=== PATIENT | male | born 1970 | race Caucasian/White ===

== ENCOUNTER 2017-09-26 12:10 | Inpatient (IN) | payer BC ==
[~2017-09-26] VITALS: Ht 172.7 cm; Wt 100.0 kg
--- NOTE | ~2017-09-26 | DS ---
PATIENT:NOE WASHBURN :68 MEDICAL RECORD: [id number] DISCHARGE SUMMARY ADMISSION DATE: 09/26/17 DISCHARGE DATE: 09/27/17 DATE OF ADMISSION: 09/26/2017 DATE OF DISCHARGE: 09/27/2017 PROBLEM LIST: 1. Acute coronary syndrome. 2. Chidi syndrome. 3. Hypertension. 4. Hyperlipidemia. BRIEF HISTORY AND HOSPITAL COURSE: A 47-year-old gentleman admitted post-WA approximately 10 days ago in [place], underwent intervention that point. Admitted with symptoms historically consistent with both rest with an acute coronary syndrome, found to have residual disease of LAD diagonal which we intervened on as well as treated for Chidi, responded very nicely to both. Discharged to home in good condition. MEDICATIONS: Same as admission except I added Medrol Dosepak. Discharged home in good condition. ACTIVITY: As tolerated. DIET: 1800 calorie ADA diet. To see him back in the office in approximately 1 month. TRANSINT:[id number] Voice Confirmation ID: [id number] DOCUMENT ID: [id number] DANILO CHAKRABORTY MD at 1116 CC: [id number] DICTATION DATE: 09/27/17 0837 DISTRIBUTION ENGINEER: 09/27/17 0948 DIS IN 09/27/17 [id number] [place] [address]
--- NOTE | ~2017-09-26 | HEMODYNAMI ---
PATIENT:NOE WASHBURN MEDICAL RECORD: [id number] : 68 [id number] ADMISSION DATE: 09/26/17 Generatedon:09/26/201713:18 Patient name: NOE WASHBURN Patient #: [id number] SSN: : Date of study: 09/26/2017 Page: Of Hemodynamic Procedure Report Patient Data Patient Demographics Procedure consent was obtained First Name: NOE Gender: Male Last Name: WU : 1970 [facility] Initial: P Age: 47 year(s) Patient #: [id number] Race: Unknown Additional ID: [id number] Contact details Address: [address] [address] State: [place] City: [place] Zip code: [address] Past Medical History Allergies: No known allergies Admission Admission Data Admission Date: 09/26/2017 Admission Time: 12:10 Procedure Procedure Types Cath Procedure Diagnostic Procedure Sedation Charges Moderate Sedation up to 15 minutes PCI Procedure AMI/SVG/SHIPFITTER HELPER PTCA or Stent SVG-BMS/EMILY Initial SVG-BMS/EMILY Additional Procedure Description Procedure Date Procedure Date: 09/26/2017 Procedure Start Time: 12:40 Procedure End Time: 13:17 Procedure Staff Name Function Chandler Vogel MD Performing Physician Natalie Serna RT Monitor Mitesh Gomez RT Scrub Trevor Stewart RN Nurse Procedure Data Cath Procedure Fluoroscopy Diagnostic fluoroscopy Total fluoroscopy Time: 7.8 time: 7.8 min min Diagnostic fluoroscopy Total fluoroscopy dose: dose: 1474 mGy 1474 mGy Contrast Material Contrast Material Type Amount (ml) Isovue 370 137 Entry Location Entry Primary Successful Side Size Upsize Upsize Entry Closure Succes sful Closure Location (Fr) 1 (Fr) 2 (Fr) Remarks Device Remarks Femoral Left 6 Fr Exoseal artery Short Estimated blood loss: 10 ml Diagnostic catheters Device Type Used For End Catheter Placement MULTIPACK JL 4.0 5Fr Procedure catheter MULTIPACK 3DRC 5Fr Procedure catheter MULTIPACK Pigtail 5 Fr Procedure catheter Procedure Complications No complications Procedure Medications Medication Administration Route Dosage 0.9% NaCl I.V. 100 ml/hr Oxygen etCO2 Nasal cannula 2 l/min Heparin Flush Bag added to field 2 bags (1000units/500ml NS) Lidocaine 2% added to field 20 Versed I.V. 2 mg Fentanyl I.V. 100 mcg Versed I.V. 1 mg Fentanyl I.V. 50 mcg Versed I.V. 1 mg Solumedrol I.V. 125 mg Hemodynamics Rest Heart Rate: 89 (bpm) Pressure Samples Time Site Value (mmHg) Purpose Heart Use Rate(bpm) 12:45 LV 109/3,15 Snapshot 95 Gradients Valve Time Site Site Mean SEP/DFP Peak To Heart Use 1 2 (mmHg) (sec/min) Peak Rate (mmHg) (bpm) Aortic 12:45 LV AO 90 Snapshots Pre Cath Intra NCS Post Cath Vital Signs Time Heart Resp SPO2 etCO2 NIBP (mmHg) Rhythm Pain Sedation Rate (ipm) (%) (mmHg) Status Level (bpm) 12:34:47 91 24 98 0 125/76(90) NSR 0 (11) 10(A) , No pain 12:39:26 91 14 98 0 109/64(90) NSR 0 (11) 10(A) , No pain 12:44:06 87 14 95 0 116/65(80) NSR 0 (11) 10(A) , No pain 12:48:49 91 14 95 0 120/69(94) NSR 0 (11) 10(A) , No pain 12:53:27 90 15 96 0 106/61(78) NSR 0 (11) 9(A) , No pain 12:58:06 89 15 96 0 118/78(94) NSR 0 (11) 9(A) , No pain 13:02:45 90 19 97 0 130/86(99) NSR 0 (11) 9(A) , No pain 13:07:25 89 20 98 0 140/97(113) NSR 0 (11) 10(A) , No pain 13:12:08 87 16 98 0 132/90(103) NSR 0 (11) 10(A) , No pain 13:16:50 87 18 96 0 136/90(105) NSR 0 (11) 10(A) , No pain Medications Time Medication Route Dose Verified Delivered Reason Notes Eff ectiveness by by 12:34:56 0.9% NaCl I.V. 100 Trevor Trevor Per ml/hr Pat Stewart physician RN RN 12:35:06 Oxygen etCO2 2 Trevor Trevor Per Nasal l/min Pat Stewart physician cannula RN RN 12:35:18 Heparin Flush added 2 Trevor Trevor used for Bag to bags Lorigan Lorigan procedure (1000units/500ml field RN RN NS) 12:35:29 Lidocaine 2% added 20ml Trevor Trevor for local to vial Lorigan Lorigan anesthetic field RN RN 12:37:05 Versed I.V. 2 mg Trevor Trevor for Lorigan Lorigan sedation RN RN 12:37:14 Fentanyl I.V. 100 Trevor Trevor for mcg Lorigan Lorigan sedation RN RN 12:38:54 Versed I.V. 1 mg Trevor Trevor for Lorigan Lorigan sedation RN RN 12:39:56 Fentanyl I.V. 50 Trevor Trevor for mcg Lorigan Lorigan sedation RN RN 13:08:15 Versed I.V. 1 mg Trevor Trevor for Lorigan Lorigan sedation RN RN 13:08:33 Solumedrol I.V. 125 Trevor Trevor Per mg Catiaigan Lorigan physician RN client coordinator Log Time Note 12:15:30 Signed procedure consent form obtained from patient. 12:15:32 Time tracking: Regular hours (M-F 7:00 - 5:00) 12:15:44 Plan of Care:Hemodynamics will remain stable., Cardiac rhythm will remain stable., Comfort level will be maintained., Respiratory function will remain adequate., Patient/ family verbilizes understanding of procedure., Procedure tolerated without complication., Recovers from procedure without complications.. 12:17:16 Trevor Stewart RN sent for patient. Start room use. 12:26:38 Patient received from ED to CCL 1 Alert and oriented. Tansferred to table in Supine position. 12:26:39 Warm blankets applied, and gilma hugger turned on for patient comfort. 12:26:40 Correct patient and procedure confirmed by team. 12:26:40 ECG and BP/O2 sat monitors applied to patient. 12:33:53 Vital chart was started 12:33:54 Baseline sample Acquired. 12:34:05 Rhythm: sinus rhythm , w/ ST elevation 12:34:06 Full Disclosure recording started 12:34:10 H&P Date Dictated: 09/26/2017 ER History on chart.. 12:34:11 Pre-procedure instructions explained to patient. 12:34:12 Pre-op teaching completed and patient verbalized understanding. 12:34:14 Patient NPO since Midnight. 12:34:20 Patient allergic to No known allergies 12:34:23 Is the patient allergic to Iodine/contrast media? No. 12:34:24 Is patient on blood thinner?Yes 12:34:26 ACC The patient was administered the following blood thiners within the last 24 hours: ACCPlavix 12:34:27 Patient diabetic? Yes. 12:34:28 If diabetic: On Metformin? Yes 12:34:29 If on Metformin: Last Dose? 09/26/2017 12:34:32 Previous problem with sedation/anesthesia? No ? 12:34:33 Snore? Yes 12:34:34 Sleep apnea? Yes 12:34:35 Deviated septum? No 12:34:35 Opens mouth fully? Yes 12:34:36 Sticks out tongue? Yes 12:34:38 Airway obstruction? No ? 12:34:39 Dentures? No ? 12:34:56 0.9% NaCl 100 ml/hr I.V. was administered by Trevor Stewart RN; Per physician; 12:35:06 Oxygen 2 l/min etCO2 Nasal cannula was administered by Trevor Stewart RN; Per physician; 12:35:18 Heparin Flush Bag (1000units/500ml NS) 2 bags added to field was administered by Trevor Stewart RN; used for procedure; 12:35:25 Pre procedure: left dorsailis pedis pulse 2+ Normal; easily identifiable; not easily obliterated 12:35:29 Lidocaine 2% 20ml vial added to field was administered by Trevor Stewart RN; for local anesthetic; 12:35:32 IV patent on arrival in right hand with 0.9% NaCl at [facility]. 12:35:39 Left groin area was prepped with chlora-prep and draped in sterile fashion 12:35:41 Alarms reviewed by R. N. 12:35:41 Sharps counted by scrub and verified by R.N. 12:35:48 --------ALL STOP TIME OUT------ 12:35:48 Final Timeout: patient, procedure, and site verified with staff and physician. All members of the team are in agreement. 12:35:51 Left groin site verified by team. 12:35:57 Physical assessment completed. ASA score P 2 - A patient with mild systemic disease as per Chandler Vogel MD. 12:36:00 Sedation plan: IV Moderate Sedation Medication:Versed, Fentanyl 12:36:05 Use device set Femoral Dx 12:36:06 ACIST Syringe (26727) opened to sterile field. 12:36:07 Bag Decanter (2002S) opened to sterile field. 12:36:11 ACIST Hand Control (50367) opened to sterile field. 12:36:12 ACIST Manifold (91508) opened to sterile field. 12:36:13 Tegaderm 4 x 4 (1626W) opened to sterile field. 12:36:14 Medline Cath Pack ([id number]) opened to sterile field. 12:36:14 DIAGNOSTIC WIRE .035 260cm J wire (658579) opened to sterile field. 12:36:16 DIAGNOSTIC Multipack 5Fr catheter set (FO5096) opened to sterile field. 12:36:41 SHEATH 6FR Broussard (WPX818) opened to sterile field. 12:36:41 INFLATOR Merit BasixCompak (GV8085) opened to sterile field. 12:36:42 WHISPER 300cm guide wire ([id number]) opened to sterile field. 12:37:05 Versed 2 mg I.V. was administered by Trevor Stewart RN; for sedation; 12:37:14 Fentanyl 100 mcg I.V. was administered by Trevor Stewart RN; for sedation; 12:38:54 Versed 1 mg I.V. was administered by Trevor Stewart RN; for sedation; 12:39:44 Zero performed for pressure channel P1 12:39:56 Fentanyl 50 mcg I.V. was administered by Trevor Stewart RN; for sedation; 12:40:03 Procedure started. 12:40:07 Local anesthetic to left femerol artery with Lidocaine 2% by Chandler Vogel MD.INITIAL ACCESS ONLY 12:40:15 A 6 Fr Short sheath was inserted into the Left Femoral artery 12:40:34 A MULTIPACK JL 4.0 5Fr catheter was advanced over the wire and used for Procedure. 12:42:19 LCA angiography performed. 12:43:04 Catheter removed. 12:43:11 A MULTIPACK 3DRC 5Fr catheter was advanced over the wire and used for Procedure. 12:43:45 RCA angiography performed. 12:43:47 Catheter removed. 12:44:10 A MULTIPACK Pigtail 5 Fr catheter was advanced over the wire and used for Procedure. 12:44:44 LV gram done using SOUZA 12:44:46 Injector settings: Ml/sec: 10, Volume: 20, 12:45:22 LV hemodynamics recorded. 12:45:28 EF : 55 % 12:45:38 Catheter removed. 12:46:02 GUIDE 6FR EBU 3.5 catheter ([id number]) opened to sterile field. 12:46:22 6 Fr EBU 3.5 guide catheter was inserted over the wire 12:49:14 WHISPER 300 wire advanced. 12:52:16 Wire advanced across lesion. 12:53:38 Place stent Inflation Number: 1 A ALISIA OTW 3.5 x 30 stent ([id number]) was prepped and advanced across the Prox LAD. The stent was deployed at 14 LOUIS for 0:15 (min:sec). 12:54:11 Stent catheter was removed intact over wire. 12:57:13 Place stent Inflation Number: 1 A ALISIA OTW 3.5 x 12 stent ([id number]) was prepped and advanced across the Mid LAD. The stent was deployed at 14 LOUIS for 0:15 (min:sec). 12:58:11 Inflation number: 2 The stent balloon was then re-inflated across the Mid LAD to 4 LOUIS for 0:10 (min:sec). 12:58:48 Inflation number: 3 The stent balloon was then re-inflated across the Mid LAD to 4 LOUIS for 0:10 (min:sec). 13:00:03 Stent catheter was removed intact over wire. 13:00:09 Wire redirected to DIAG. 13:04:27 Place stent Inflation Number: 1 A ALISIA OTW 3.0 x 30 stent ([id number]) was prepped and advanced across the 1st Diag. The stent was deployed at 12 LOUIS for 0:20 (min:sec). 13:05:14 Stent catheter was removed intact over wire. 13:05:14 Wire removed. 13:05:30 Guide catheter removed. 13:05:49 EXOSEAL 6Fr (EX600) opened to sterile field. 13:06:00 Sheath removed intact; hemostasis achieved with Exoseal to the Left Femoral artery. 13:06:48 Procedure ended.(Physican Out) 13:07:09 Fluoroscopy time 07.80 minutes. 13:07:15 Fluoroscopy dose: 1474 mGy 13:07:15 Flurop Dose total: 1474 13:07:19 Contrast amount:Isovue 370 137ml. 13:07:21 Sharps counted by scrub and verified by R.N. 13:07:24 Post-op/insertion site Left Femoral artery dressed using a 4 x 4 and Tegaderm. 13:07:30 Post left femerol artery:stable, soft, clean and dry 13:07:35 Post-procedure physical assessment completed. ASA score P 2 - A patient with mild systemic disease as per Chanlder Vogel MD. 13:08:15 Versed 1 mg I.V. was administered by Trevor Stewart RN; for sedation; 13:08:33 Solumedrol 125 mg I.V. was administered by Trevor Stewart RN; Per physician; 13:08:46 Post procedure rhythm: sinus rhythm 13:08:48 Estimated blood loss: 10 ml 13:11:22 Post procedure instruction explained to patient.Patient verbalizes understanding. 13:11:22 Patient needs reinforcement of post procedure teaching. 13:11:37 Procedure type changed to Cath procedure, Diagnostic procedure, Sedation Charges, Moderate Sedation up to 15 minutes, PCI procedure, AMI/SVG/SHIPFITTER HELPER PTCA or Stent, SVG-BMS/EMILY Initial, SVG-BMS/EMILY Additional 13:12:02 Procedure and supply charges have been captured, reviewed, submitted and are correct. 13:12:05 Procedure Complication : No complications 13:17:22 Vital chart was stopped 13:17:23 See physician's report for complete and final results. 13:17:27 Report given to PCU. 13:17:30 Patient transfered to PCU with Bed. 13:17:31 Procedure ended. 13:17:31 Full Disclosure recording stopped 13:17:37 End room use (Document Last) Intervention Summary Intervention Notes Time ActionType Lesion and Equipment Action# Pressure Duration Attributes Used 12:53:38 Place stent Prox LAD ALISIA OTW 3.5 1 14 00:15 x 30 stent ([id number]) 12:57:13 Place stent Mid LAD ALISIA OTW 3.5 1 14 00:15 x 12 stent ([id number]) 12:58:11 Reinflate Mid LAD ALISIA OTW 3.5 2 4 00:10 stent x 12 stent balloon ([id number]) 12:58:48 Reinflate Mid LAD ALISIA OTW 3.5 3 4 00:10 stent x 12 stent balloon ([id number]) 13:04:27 Place stent 1st Diag ALISIA OTW 3.0 1 12 00:20 x 30 stent ([id number]) Device Usage Item Name Manufacture Quantity Catalog Hospital Part Current Mini mal Lot# / Number Charge Number Stock Stock Serial# Code ACIST Syringe Acist 1 89977 124064 473185 118859 20 (23989) Medical Systems Inc Bag Decanter Microtek 1 2001S 059794 97429 262912 5 (2001S) Medical Inc. ACIST Hand Acist 1 75208 537657 930087 416769 5 Control Medical (09035) Systems Inc ACIST Acist 1 49146 734219 465944 101696 5 Manifold Medical (63304) Systems Inc Tegaderm 4 x 3M 1 1626W 852577 587991 701459 5 4 (1626W) Medline Cath Cardinal 1 [id number] 678028 26231 704705 5 [facility] ([id number]) DIAGNOSTIC St Dexter 1 407321 404776 969873 353847 30 WIRE .035 260cm J wire (452977) DIAGNOSTIC Cardinal 1 FX6831 777138 08242 423167 30 Multipack 5Fr Health catheter set (OZ7048) SHEATH 6FR Terumo 1 BMU243 012679 819366 531208 40 Broussard (MRB473) INFLATOR Merit 1 CV7546 656293 481165 788207 15 [facility] Medical BasixCompak (AH1213) WHISPER 300cm Hawley 1 [id number] 409895 710832 427045 5 guide wire Vascular ([id number]) MULTIPACK JL Cardinal 1 846037 5 4.0 5Fr Health catheter MULTIPACK Cardinal 1 314978 5 3DRC 5Fr Health catheter MULTIPACK Cardinal 1 991588 5 Pigtail 5 Fr Health catheter GUIDE 6FR EBU Medtronic 1 [id number] 697246 44277 798247 3 3.5 catheter (ND3VZB82) ALISIA OTW 3.5 Medtronic 1 [id number] 759280 2325352 099509 5 [id number] x 30 stent ([id number]) ALISIA OTW 3.5 Medtronic 1 [id number] 703528 6993989 922782 5 [id number] x 12 stent ([id number]) ALISIA OTW 3.0 Medtronic 1 [id number] 668279 4153214 956957 5 [id number] x 30 stent ([id number]) EXOSEAL 6Fr Cardinal 1 EX600 650007 128903 951461 10 (EX600) Health Signature Audit [place] Stage Time Signature Unsigned Intra-Procedure 09/26/2017 Natalie Serna 1:18:00 PM RT(R) Signatures Monitor : Natalie Serna Signature : RT Date : Time : [address] [place] [address]
--- NOTE | ~2017-09-26 | MORECARE ---
CASE MANAGEMENT DISCHARGE SUMMARY PATIENT: NOE WASHBURN UNIT: [id number] ADM DATE: 09/26/17 AGE: 47 : [birth year] SEX: M ROOM/BED: D.2114 AUTHOR: CASE, CLOTHING AND TEXTILES TEACHER PHYSICIAN: REFERRING PHYSICIAN: DANILO CHAKRABORTY MD DATE OF SERVICE: 09/26/17 Discharge Plan Patient Name: NOE WASHBURN Facility: [facility]:[place] : 1970 Planned Disposition: Home Anticipated Discharge Date: 09/27/17 Discharge Date: Expected LOS: 1 Initial Reviewer: [email or web address] Initial Review Date: 09/27/2017 Generated: 09/27/17 12:24 pm Comments DCP- Discharge Planning Updated by [email or web address]: Allan Real on 09/27/17 10:[address] Patient Name: NOE WASHBURN Admission Status: ER Accout number: [id number] Admission Date: 09-26-2017 : 1970 Admission Diagnosis:CHEST PAIN, UNSPECIFIED Attending: DANILO CHAKRABORTY Current LOS: 1 Anticipated DC Date: 09-27-2017 Planned Disposition: Home Primary Insurance: Xyo [facility] Discharge Planning Comments: CM ATTEMPTED TO MEET WITH PT IN ROOM TO ASSESS FOR DISCHARGE NEEDS AT APPROXIMATELY 1010 HOURS. PT HAD ALREADY DISCHARGED HOME. Spark Plug Assembler: Allan Real Patient Name: NOE WASHBURN Page [phone] All edits/amendments must be made on the electronic document DICTATION DATE: 09/27/17 1124 DRAW OPERATOR: 09/27/17 1124 RPT#: [id number] DC DATE: STATUS: ADM IN [facility] [address] [place] [address] END OF REPORT
--- NOTE | ~2017-09-26 | OP ---
PATIENT NAME: NOE WASHBURN MEDICAL RECORD: [id number] :68 LOCATION:D.M2 D.2114 ADMISSION DATE:09/26/17 SURGEON: DANILO CHAKRABORTY MD DATE OF OPERATION: 09/26/2017 PROCEDURE: Left heart catheterization, selective coronary angiography, right radial approach. CATHETERS: A 5-Nigerien sheath, 5/4 left and right César. The procedure was well tolerated. We proceeded immediately with mid and PDA stenting to the LAD and diagonal after procedure was finished. FINDINGS: Left ventriculography in 30-degree SOUZA view: This shows normal wall motion and normal systolic function. No significant mitral regurgitation. No evidence of VSD. CORONARY ANATOMY: LEFT MAIN: Left main is free of disease. LAD: LAD has diffuse 80% stenosis, typical of diabetic disease, after takeoff of first diagonal. First diagonal itself is a large vessel diffuse 80% stenosis. CIRCUMFLEX: Codominant system. Free of disease. RIGHT CORONARY ARTERY: Codominant system. Widely patent stent. PLAN: Intervention of LAD and diagonal momentarily. DESCRIPTION OF PROCEDURE: A 5-Nigerien sheath was changed for 6-Nigerien sheath. XB LAD guiding catheter provided excellent guide catheter support followed by 300 cm Whisper wire placed across the diffusely diseased LAD and distal portion of the vessel. Stents deployed in the following fashion. A 3.5 x 30 mm and 3.5 x 12 mm Elwood drug-eluting stents up to 14 atmospheres for 45 seconds. Next, the diagonal was addressed with a 28 mm x 3.0 Elwood drug-eluting stent up to 14 atmospheres. Final angiography shows excellent resolution of diffuse stenosis, typical of diabetic in the LAD and diagonal. ARNALDO flow was 3 throughout the procedure. Heparin was used in the case. Sheath was closed with ExoSeal device. TRANSINT:[id number] Voice Confirmation ID: [id number] DOCUMENT ID: [id number] DANILO CHAKRABORTY MD at 1116 CC: [id number] DICTATION DATE: 09/26/17 1319 SYSTEMS DEVELOPMENT MANAGER: 09/26/17 1354 DIS IN 09/27/17 [address] [place] [address]
--- NOTE | ~2017-09-26 | HP ---
PATIENT: NOE WASHBURN MEDICAL RECORD: [id number] ACCOUNT: [id number] LOCATION:[address] : [birth year] ADMISSION DATE: 09/26/17 HISTORY AND PHYSICAL EXAMINATION HISTORY OF PRESENT ILLNESS: A 47-year-old gentleman status post intervention 3 weeks ago in [place] after acute inferior myocardial infarction, began having rest symptomology, presented to Dr. Bland's office, was sent here via ambulance, being brought to the label maker on an urgent basis. Symptomology began last couple of days, some pleuritic component. He is being brought to the lab on an urgent basis. PAST MEDICAL HISTORY: Includes: 1. History of diabetes. 2. Hypertension. 3. Hyperlipidemia. 4. Coronary artery disease as described above. 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 Does smoke less than half pack a day. ALLERGIES: None known. REVIEW OF SYSTEMS: The patient reports easy bruising but reports no swollen glands. The patient reports no fever, no night sweats, no significant weight gain, no significant weight loss. No significant exercise tolerance. The patient reports no dry eyes, no irritation, no vision change. Patient reports no difficulty hearing and no ear pain. Patient reports no frequent nose bleeds or nose and sinus problems. Patient reports on arm pain on exertion. No shortness of breath while lying down. No history of heart murmur. Patient reports no cough, no wheezing or coughing up blood. Patient reports no abdominal pain, no vomiting. Normal appetite. No diarrhea and not vomiting blood. No nausea and no constipation. Patient reports no incontinence. No difficulty urinating. No hematuria. No increased frequency. Patient reports no muscle aches. No weakness, no arthralgias, no back pain. No swelling of the extremities. Patient reports no abnormal mole, no jaundice, no rashes. Reports no loss of consciousness. No weakness and no numbness. No seizures, dizziness, or headaches. The patient reports no depression, no sleep disturbance, feeling safe in a relationship and no alcohol abuse. Patient reports on fatigue. Reports no runny nose or sinus pressure. No itching, no hives, and no frequent sneezing. PHYSICAL EXAMINATION: GENERAL: Unkempt-appearing gentleman in mild distress. VITAL SIGNS: Pulse 78 and regular, blood pressure 103/74. HEENT: Normocephalic and atraumatic. NECK: No JVD or bruit. HEART: Regular. A soft 1/6 systolic ejection murmur, cannot exclude a single component friction rub. LUNGS: Good air excursion. ABDOMEN: Soft and nontender. EXTREMITIES: Pulses well preserved, 2+ with no edema. ECG revealed some minor non-specific ST changes anteriorly, old inferior myocardial infarction. HISTORY AND PHYSICAL [id number] NOE WASHBURN PLAN: Angiography, intervention based on above. TRANSINT:[id number] Voice Confirmation ID: [id number] DOCUMENT ID: [id number] DANILO CHAKRABORTY MD at 1116 CC: [id number] DICTATION DATE: 09/26/17 1317 JOCKEY VALET: 09/26/17 1328 DIS IN 09/27/[address] [address]
[2017-09-26] MEDS ORDERED: PLAVIX75 MG PO (12:27)
[2017-09-26] MEDS ORDERED: BAYER CHEWABLE81 MG PO (12:27)
[2017-09-26 12:28] LABS: BASOPHILS 0.4 % (0-2); HEMATOCRIT 43.8 % (42.0-54.0); HEMOGLOBIN 15.4 g/dL (13.5-17.5); IMMATURE GRANULOCYTES 0.3 % (0-5); MCH 30.6 pg (26.0-34.0); MCHC 35.2 g/dL (31.0-37.0); MCV 87.1 fL (80.0-100.0); MEAN PLATELET VOLUME 10.9 fL (7.4-10.4); MONOCYTES 9.5 % (2-11); NEUTROPHILS 54.8 % (40-80); PLATELET COUNT 230 10x3/uL (130-400); RBC 5.03 10x6/uL (4.20-6.10); RDW 12.4 % (11.5-14.5); WBC 11.9 10x3/uL (4.8-10.8)
[2017-09-26] MEDS ORDERED: METOPROLOL TART50 MG PO (12:28)
[2017-09-26] MEDS ORDERED: ZESTRIL20 MG PO (12:28)
[2017-09-26] MEDS ORDERED: ZOCOR40 MG PO (12:28)
[2017-09-26] MEDS ORDERED: GLUCOPHAGE500 MG PO (12:29)
[2017-09-26 12:52] LABS: ALKALINE PHOSPHATASE 137 U/L (46-116); ALT (SGPT) 26 U/L (10-68); APTT 24.5 SECONDS (22.8-39.4); BILIRUBIN - TOTAL 0.31 mg/dL (0.2-1.3); CALC OSMOLALITY 283 mosm/kg (275-300); CALCIUM 8.7 mg/dL (8.5-10.1); CARBON DIOXIDE 26.3 mmol/L (21.0-32.0); CHLORIDE - SERUM 103 mmol/L (98-107); CREATININE - SERUM 0.9 mg/dL (0.6-1.3); GLUCOSE 316 mg/dL (74-106); INR 0.94 (0.85-1.17); POTASSIUM - SERUM 4.1 mmol/L (3.5-5.1); PROTEIN - SERUM 6.9 g/dL (6.4-8.2); PROTIME 12.2 SECONDS (11.6-15.0); SODIUM 136 mmol/L (136-145); UREA NITROGEN 13 mg/dL (7-18); eGFR NON AFRICAN AMERICAN > 90 mL/min (90-120)
[2017-09-26 13:02] LABS: CKMB 0.4 U/L (0.0-3.6); CREATINE KINASE 51 UL (21-232); TROPONIN-I < 0.017 ng/mL (0.000-0.060)
[2017-09-26 13:45] VITALS: BP 124/82; Ht 172.7 cm; Wt 100.0 kg
[2017-09-26 14:03] VITALS: BP 117/72
[2017-09-26 20:00] VITALS: BP 163/90
[2017-09-26] MEDS ORDERED: ATIVAN1 MG PO (20:27)
[2017-09-27] VITALS: BP 140/85
[2017-09-27 04:00] VITALS: BP 134/82
[2017-09-27 07:50] VITALS: BP 139/88
[2017-09-27] MEDS ORDERED: MEDROL DOSE PACK4 MG PO (08:29)
[2017-09-27 11:12] VITALS: BP 152/93
== END 2017-09-27 10:00 | disposition home or self-care (01) | DRG 247 ==
LOC: D.CATH 12:10 → D.ER 12:10 → EDSTATUS 12:30 → D.M2 13:17 → D.CATH 13:18 → D.M2 09-27 10:00
PROVIDERS: Internal Medicine Interventional Cardiology
PROC: B2111ZZ Fluoroscopy of Multiple Coronary Arteries using Low Osmolar Contrast (ICD-10-PCS; 2017-09-26)
PROC: B2151ZZ Fluoroscopy of Left Heart using Low Osmolar Contrast (ICD-10-PCS; 2017-09-26)
PROC: 027136Z Dilation of Coronary Artery, Two Arteries with Three Drug-eluting Intraluminal Devices, Percutaneous Approach (ICD-10-PCS; principal; 2017-09-26 12:30)
PROC: 4A023N7 Measurement of Cardiac Sampling and Pressure, Left Heart, Percutaneous Approach (ICD-10-PCS; 2017-09-26 12:30)
DX: I25.118 Atherosclerotic heart disease of native coronary artery with other forms of angina pectoris (principal); I24.1 Dressler's syndrome; I25.2 Old myocardial infarction; E11.9 Type 2 diabetes mellitus without complications; I10 Essential (primary) hypertension; E78.5 Hyperlipidemia, unspecified; Z72.0 Tobacco use

== ENCOUNTER 2017-10-19 12:05 | Emergency (ER) | payer BC ==
[~2017-10-19] VITALS: Ht 172.7 cm; Wt 101.8 kg
[~2017-10-19 12:05] MED LIST: ATIVAN1 MG PO; BAYER CHEWABLE81 MG PO; GLUCOPHAGE500 MG PO; MEDROL DOSE PACK4 MG PO; METOPROLOL TART50 MG PO; PLAVIX75 MG PO; ZESTRIL20 MG PO; ZOCOR40 MG PO
[2017-10-19 12:13] VITALS: Ht 172.7 cm; Wt 101.8 kg
[2017-10-19 12:48] LABS: BASOPHILS 0.4 % (0-2); EOSINOPHILS 4.7 % (0-7); HEMATOCRIT 45.9 % (42.0-54.0); HEMOGLOBIN 16.3 g/dL (13.5-17.5); IMMATURE GRANULOCYTES 0.2 % (0-5); LYMPHOCYTES 26.5 % (15-50); MCH 30.6 pg (26.0-34.0); MCHC 35.5 g/dL (31.0-37.0); MCV 86.1 fL (80.0-100.0); MEAN PLATELET VOLUME 10.6 fL (7.4-10.4); NEUTROPHILS 61.2 % (40-80); PLATELET COUNT 217 10x3/uL (130-400); RBC 5.33 10x6/uL (4.20-6.10); RDW 12.4 % (11.5-14.5)
[2017-10-19 13:02] LABS: ALBUMIN 3.3 g/dL (3.4-5.0); ALKALINE PHOSPHATASE 123 U/L (46-116); ALT (SGPT) 26 U/L (10-68); BILIRUBIN - TOTAL 0.29 mg/dL (0.2-1.3); CALC OSMOLALITY 279 mosm/kg (275-300); CALCIUM 8.9 mg/dL (8.5-10.1); CARBON DIOXIDE 27.7 mmol/L (21.0-32.0); CHLORIDE - SERUM 102 mmol/L (98-107); CREATININE - SERUM 0.9 mg/dL (0.6-1.3); POTASSIUM - SERUM 3.7 mmol/L (3.5-5.1); PROTEIN - SERUM 7.3 g/dL (6.4-8.2); SODIUM 137 mmol/L (136-145); UREA NITROGEN 8 mg/dL (7-18); eGFR NON AFRICAN AMERICAN > 90 mL/min (90-120)
[2017-10-19 13:05] LABS: GLUCOSE 237 mg/dL (74-106)
[2017-10-19 13:13] LABS: APPEARANCE CLEAR (CLEAR)
[2017-10-19 13:14] LABS: BILIRUBIN NEGATIVE (NEGATIVE); COLOR STRAW (YELLOW); GLUCOSE 1000 mg/dL (NEGATIVE); KETONE NEGATIVE (NEGATIVE); NITRITE NEGATIVE (NEGATIVE); PROTEIN NEGATIVE (NEGATIVE); SPECIFIC GRAVITY 1.015 (1.005-1.020); UROBILINOGEN NORMAL (NORMAL)
[2017-10-19 13:22] LABS: AMYLASE - SERUM 53 U/L (25-115); LIPASE 171 U/L (73-393)
[2017-10-19] MEDS ORDERED: NORCO 7.5/325 T1 TA1 PO (16:40)
[2017-10-19 16:59] VITALS: BP 144/84
== END 2017-10-19 17:00 | disposition home or self-care (01) ==
LOC: D.ER 12:05
PROVIDERS: Emergency Medicine
DX: R10.11 Right upper quadrant pain (principal); E11.9 Type 2 diabetes mellitus without complications; I10 Essential (primary) hypertension

== ENCOUNTER 2017-11-15 16:10 | Outpatient (CLI) | payer BC ==
[~2017-11-15] VITALS: Ht 172.7 cm; Wt 100.1 kg
--- NOTE | ~2017-11-15 | HP ---
PATIENT: NOE WASHBURN MEDICAL RECORD: [id number] ACCOUNT: [id number] LOCATION:[address] : [birth year] ADMISSION DATE: 11/15/17 PCP: MARK HICKEY DO HISTORY AND PHYSICAL EXAMINATION DIAGNOSES: 1. Unstable angina. 2. Coronary artery disease. 3. Previous percutaneous transluminal coronary angioplasty stent. 4. Hypertension. 5. Hyperlipidemia. HISTORY OF PRESENT ILLNESS: Mr. Washburn presents with chest pain, it has been going on all day. He [place] myocardial [place]. Followed up with Dr. Omalley. Approximately 2-3 weeks ago, underwent successful PTCA stent of the LAD and diagonal. There was still concomitant disease in the LAD as well as the circumflex. 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 He drove here, his severe chest pain is gone now. He is still having some chest pressure. He has nonspecific ST-T abnormalities on his EKG. OVERALL IMPRESSION: Unstable anginal symptomatology. We will continue his aspirin and Plavix, give him a heparin drip and proceed with coronary angiography in the a.m. Further care depends upon the findings of the angiography. TRANSINT:[id number] Voice Confirmation ID: [id number] DOCUMENT ID: [id number] ALPHONSE BAILEY MD at 0934 CC: [id number] DICTATION DATE: 11/15/17 1655 TIGHTENING MACHINE OPERATOR: 11/15/17 1737 ADM IN [id number] [place] [address]
--- NOTE | ~2017-11-15 | OP ---
PATIENT NAME: NOE WASHBURN MEDICAL RECORD: [id number] :68 LOCATION:D.CAT ADMISSION DATE: SURGEON: ALPHONSE BAILEY MD DATE OF OPERATION: 11/16/2017 PROCEDURE: Four-vessel carotid and vertebral angiography. INDICATIONS: Syncope, carotid vascular disease. PROCEDURE IN DETAIL: After informed consent was obtained and after detailed explanation of risks, benefits as well as alternative therapies, the patient elected to proceed with angiogram. The right femoral area had a preexisting sheath from cardiac intervention. All catheters exchanged through this sheath. FINDINGS: There was subselection of each subclavian as well as the left carotid. Right side: The common internal and external carotids have mild plaquing none greater than 20%. No flow-limiting stenosis. Vertebral artery has no significant disease. Left system: The common internal and external carotids have mild plaquing none greater than 20%. No flow-limiting stenosis. Vertebral artery has no significant disease. OVERALL IMPRESSION: Minimal carotid vascular disease is present. Symptomatology is not secondary to carotid vascular insufficiency. TRANSINT:[id number] Voice Confirmation ID: [id number] DOCUMENT ID: [id number] ALPHONSE BAILEY MD at 1823 CC: [id number] DICTATION DATE: 11/16/17 0938 CERTIFIED DIALYSIS TECHNICIAN: 11/16/17 1042 DEP CLI 11/16/17 [id number] [place] [address]
--- NOTE | ~2017-11-15 | DS ---
PATIENT:NOE JIMENEZ :68 MEDICAL RECORD: [id number] DISCHARGE SUMMARY ADMISSION DATE: 11/15/17 DISCHARGE DATE: 11/16/17 DATE OF SERVICE: 11/16/2017 DIAGNOSES: 1. Percutaneous transluminal coronary angioplasty stent left anterior descending this admission. 2. Unstable angina. 3. Hypertension. 4. Hyperlipidemia. 5. Ischemic cardiomyopathy. HOSPITAL COURSE: Mr. Jimenez presents with anginal symptomatology, found to have significant disease of the ostial LAD, underwent successful PTCA stent of the ostium of the LAD, was discharged home with no changes to his medications as he is already on aspirin and Plavix. He will follow up with [facility] in 1 month. TRANSINT:[id number] Voice Confirmation ID: [id number] DOCUMENT ID: [id number] ALPHONSE BAILEY MD at 1823 CC: [id number] DICTATION DATE: 11/16/17 0939 SENIOR MARKETING SPECIALIST: 11/16/17 1008 DEP CLI 11/16/17 [id number] [place] [address]
--- NOTE | ~2017-11-15 | OP ---
PATIENT NAME: NOE WASHBURN MEDICAL RECORD: [id number] :68 LOCATION:D.CAT ADMISSION DATE: SURGEON: ALPHONSE BAILEY MD DATE OF OPERATION: 11/16/2017 PROCEDURES: 1. PTCA and stent of LAD. 2. Intravascular ultrasound. 3. Left heart catheterization. 4. Selective coronary angiography. 5. Left ventriculogram. INDICATION: Angina and coronary artery disease. PROCEDURE IN DETAIL: After informed consent was obtained and after a detailed explanation of risks, benefits as well as alternative therapies, the patient elected to proceed with angiogram and angioplasty. The right femoral area was prepped and draped in normal sterile fashion. The right femoral artery was cannulated via modified Seldinger technique with placement of 6-Libyan sheath. All catheters exchanged through this sheath. FINDINGS: The left ventriculogram was performed in standard 30-degree SOUZA view, reveals global hypokinesis throughout all segments. Overall ejection fraction 40%. SELECTIVE CORONARY ANGIOGRAPHY: 1. Left main is with no significant angiographic disease. 2. Left anterior descending has greater than 75% stenosis at the ostium confirmed by intravascular ultrasound. There are previously placed stents in the LAD and diagonal. These are widely patent. 3. The left circumflex has moderate irregularities. 4. The right coronary has previously placed stents. These are widely patent with no significant restenosis. No disease elsewise of the RCA or its branches. PTCA AND STENT OF THE LAD OSTIUM: The stent used is a 4.0 x 15 mm [place]. Result was 0% residual stenosis. OVERALL IMPRESSION: Successful PTCA and stent of the LAD going from 75% initial stenosis to 0% residual. TRANSINT:[id number] Voice Confirmation ID: [id number] DOCUMENT ID: [id number] ALPHONSE BAILEY MD at 1823 CC: [id number] DICTATION DATE: 11/16/17 0938 KNITTER HAND: 11/16/17 1038 [facility] CLI 11/16/17 [address] [place] [address]
--- NOTE | ~2017-11-15 | HEMODYNAMI ---
PATIENT:NOE WASHBURN MEDICAL RECORD: [id number] : 68 LOCATION:[facility] D.2114 ADMISSION DATE: 11/15/17 Generatedon:11/16/20179:42 Patient name: NOE WASHBURN Patient #: [id number] SSN: : Date of study: 11/16/2017 Page: Of Hemodynamic Procedure Report Patient Data Patient Demographics Procedure consent was obtained First Name: NOE Gender: Male Last Name: WU : 1970 Middle Initial: P Age: 47 year(s) Patient #: [id number] Race: Unknown Additional ID: [id number] Contact details Address: [address] [address] State: [place] City: [place] Zip code: [address] Past Medical History Allergies: No known allergies Admission Admission Data Admission Date: 11/15/2017 Admission Time: 18:04 Admit Source: Emergency department Room #: D.2114 Procedure Procedure Types Cath Procedure Diagnostic Procedure LHC LHC w/Coronaries FFR/IVUS Intra-Coronary IVUS Initial Sedation Charges Moderate Sedation up to 15 minutes PCI Procedure Coronary Stent Coronary Stent Initial Procedure Description Procedure Date Procedure Date: 11/16/2017 Procedure Start Time: 9:18 Procedure End Time: 9:40 Procedure Staff Name Function Adonis López MD Performing Physician Mitesh Gomez RT Monitor Anita Alvarez RT Scrub Deepika Adams RN Nurse Procedure Data Cath Procedure Fluoroscopy Diagnostic fluoroscopy Total fluoroscopy Time: 4.6 time: 4.6 min min Diagnostic fluoroscopy Total fluoroscopy dose: 967 dose: 967 mGy mGy Contrast Material Contrast Material Type Amount (ml) Isovue 300 108 Entry Location Entry Primary Successful Side Size Upsize Upsize Entry Closure Succes sful Closure Location (Fr) 1 (Fr) 2 (Fr) Remarks Device Remarks Femoral Right 6 Fr Exoseal artery Short Estimated blood loss: 10 ml Diagnostic catheters Device Type Used For End Catheter Placement MULTIPACK Pigtail 5 Fr Procedure catheter MULTIPACK JL 4.0 5Fr Procedure catheter MULTIPACK 3DRC 5Fr Procedure catheter MULTIPACK 3DRC 5Fr Procedure catheter Procedure Complications No complications Procedure Medications Medication Administration Route Dosage Oxygen NC 2 l/min Lidocaine 2% added to field 20 Heparin Flush Bag added to field 2 bags (1000units/500ml NS) 0.9% NaCl I.V. 100 ml/hr Versed I.V. 2 mg Fentanyl I.V. 100 mcg Heparin Drip 1000 units/hr (44866xzhkj/250 D5W) Heparin Bolus I.V. 4000 units Hemodynamics Rest Heart Rate: 77 (bpm) Pressure Samples Time Site Value (mmHg) Purpose Heart Use Rate(bpm) 9:19 LV 117/16,25 Snapshot 72 Snapshots Pre Cath Intra NCS Post Cath Vital Signs Time Heart Resp SPO2 etCO2 NIBP (mmHg) Rhythm Pain Sedation Rate (ipm) (%) (mmHg) Status Level (bpm) 9:10:06 70 24 98 38.3 132/79(102) NSR 0 (11) 10(A) , No pain 9:14:44 73 16 97 42.9 126/73(92) NSR 0 (11) 10(A) , No pain 9:19:23 71 15 97 39.1 116/67(104) NSR 0 (11) 9(A) , No pain 9:24:01 71 12 97 43.6 130/76(102) NSR 0 (11) 9(A) , No pain 9:28:36 70 12 98 40.6 111/70(101) NSR 0 (11) 9(A) , No pain 9:33:14 68 15 98 42.9 119/68(93) NSR 0 (11) 10(A) , No pain 9:37:53 67 12 98 42.9 116/73(88) NSR 0 (11) 10(A) , No pain Medications Time Medication Route Dose Verified Delivered Reason Notes Effectiveness by by 9:00:29 Heparin Drip I.V. 1000 Adonis Buffie Per physi dang (65594bkqdf/250 drip-discontinued units/hr Rene Adams RN D5W) 9:08:50 Oxygen NC 2 l/min Adonis Poe used for Rene Adams RN procedure 9:08:57 Lidocaine 2% added to field 20ml Adonis Lamb for local vial Rene López MD anesthetic 9:09:03 Heparin Flush added to field 2 bags Adonis Lamb used for Bag Rene López MD procedure (1000units/500ml NS) 9:09:11 0.9% NaCl I.V. 100 Adonis Poe Per physi dang ml/hr Rene Adams RN 9:16:58 Versed I.V. 2 mg Adonis Poe for sedat ion Rene Adams RN 9:17:03 Fentanyl I.V. 100 mcg Adonis Poe for sedat ion Rene Adams RN 9:23:28 Heparin Bolus I.V. 4000 Adonis Poe for verified units Rene Adams RN anticoagulation with dr lópez Procedure Log Time Note 8:39:46 Informed consent obtained and on chart 8:40:02 Admit Source: Emergency department 8:40:03 Diagnostic Cath status Elective 8:40:06 Time tracking: Call back (After hours or weekends) 8:40:17 Plan of Care:Hemodynamics will remain stable., Cardiac rhythm will remain stable., Comfort level will be maintained., Respiratory function will remain adequate., Patient/ family verbilizes understanding of procedure., Procedure tolerated without complication., Recovers from procedure without complications.. 8:40:25 H&P Date Dictated: 11/15/2017 Within 30 days and on chart.. 8:50:02 Deepika Adams RN sent for patient. Start room use. 9:00:29 Heparin Drip (53454mdjko/250 D5W) 1000 units/hr I.V. drip-discontinued was administered by Deepkia Adams RN; Per physician; 9:00:39 Patient received from PCU to CCL 1 Alert and oriented. Tansferred to table in Supine position. 9:00:40 Warm blankets applied, and gilma hugger turned on for patient comfort. 9:00:40 Correct patient and procedure confirmed by team. 9:00:41 ECG and BP/O2 sat monitors applied to patient. 9:00:43 Pre-procedure instructions explained to patient. 9:00:43 Pre-op teaching completed and patient verbalized understanding. 9:00:44 Family in patients room. 9:00:46 Patient NPO since Midnight. 9:08:50 Oxygen 2 l/min NC was administered by Deepika Adams RN; used for procedure; 9:08:57 Lidocaine 2% 20ml vial added to field was administered by Adonis López MD; for local anesthetic; 9:09:03 Heparin Flush Bag (1000units/500ml NS) 2 bags added to field was administered by Adonis López MD; used for procedure; 9:09:11 0.9% NaCl 100 ml/hr I.V. was administered by Deepika Adams RN; Per physician; 9:09:15 Vital chart was started 9:12:13 Baseline sample Acquired. 9:12:16 Rhythm: sinus rhythm 9:12:18 Full Disclosure recording started 9:12:25 Patient allergic to No known allergies 9:12:44 Is the patient allergic to Iodine/contrast media? No. 9:12:45 Is patient on blood thinner?Yes 9:12:48 ACC The patient was administered the following blood thiners within the last 24 hours: ACCPlavix 9:12:50 Patient diabetic? Yes. 9:12:51 If diabetic: On Metformin? Yes 9:12:53 If on Metformin: Last Dose? 11/15/2017 9:12:55 ----Pre-sedation anethsthesia assessment.---- 9:12:57 Previous problem with sedation/anesthesia? No ? 9:13:02 Snore? Yes 9:13:03 Sleep apnea? No 9:13:04 Deviated septum? No 9:13:06 Opens mouth fully? Yes 9:13:07 Sticks out tongue? Yes 9:13:09 Airway obstruction? No ? 9:13:11 Dentures? No ? 9:13:13 Pre procedure: right dorsailis pedis pulse 2+ Normal; easily identifiable; not easily obliterated 9:13:17 Patient pain scale 0/10 ?. 9:13:20 IV patent on arrival in left forearm with 0.9% NaCl at [facility]. 9:14:58 Lab Result : BUN 14 mg/dl 9::58 Lab Result : Creatinine 1 mg/dl 9:14:58 Lab Result : Hemoglobin 17.1 g/dl 9:14:58 Lab Result : Hematocrit 48 % 9:15:00 SHEATH Prelude 6Fr 0.035 (ZLK-5V-44-035) opened to sterile field. 9:15:00 Lab results completed and on chart. 9:15:05 Right groin area was prepped with chlora-prep and draped in sterile fashion 9:15:06 Alarms reviewed by R. N. 9:15:07 Sharps counted by scrub and verified by R.N. 9:15:12 Use device set Femoral Dx 9:15:13 ACIST Syringe (31953) opened to sterile field. 9:15:14 Bag Decanter (2002S) opened to sterile field. 9:15:14 Medline Cath Pack ([id number]) opened to sterile field. 9:15:15 ACIST Hand Control (79609) opened to sterile field. 9:15:16 ACIST Manifold (92850) opened to sterile field. 9:15:16 Tegaderm 4 x 4 (1626W) opened to sterile field. 9:15:19 DIAGNOSTIC Multipack 5Fr catheter set (WU4206) opened to sterile field. 9:15:20 DIAGNOSTIC WIRE .035 260cm J wire (832847) opened to sterile field. 9:15:28 Physician arrived 9:15:28 --------ALL STOP TIME OUT------ 9:15:28 Final Timeout: patient, procedure, and site verified with staff and physician. All members of the team are in agreement. 9:15:30 Right groin site verified by team. 9:15:33 Physical assessment completed. ASA score P 2 - A patient with mild systemic disease as per Adonis López MD. 9:15:36 Sedation plan: IV Moderate Sedation Medication:Versed, Fentanyl 9:16:58 Versed 2 mg I.V. was administered by Deepika Adams RN; for sedation; 9:17:03 Fentanyl 100 mcg I.V. was administered by Deepika Adams RN; for sedation; 9:18:35 Procedure started. 9:18:37 Local anesthetic to right femoral artery with Lidocaine 2% by Adonis López MD.INITIAL ACCESS ONLY 9:18:43 A 6 Fr Short sheath was inserted into the Right Femoral artery 9:18:45 Zero performed for pressure channel P1 9:19:06 A MULTIPACK Pigtail 5 Fr catheter was advanced over the wire and used for Procedure. 9:19:21 LV gram done using SOUZA 9:19:24 Injector settings: Ml/sec: 10, Volume: 20, 9:19:26 LV hemodynamics recorded. 9:19:30 EF : 40 % 9:19:31 Catheter exchanged over wire. 9:19:41 A MULTIPACK JL 4.0 5Fr catheter was advanced over the wire and used for Procedure. 9::38 LCA angiography performed. 9:: Catheter exchanged over wire. 9::31 A MULTIPACK 3DRC 5Fr catheter was advanced over the wire and used for Procedure. 9:21:38 RCA angiography performed. 9:21:40 Catheter exchanged over wire. 9:22:00 CHOICE PT Extra Support 182cm wire ([id number]) opened to sterile field. 9:22:01 INFLATOR Merit BasixCompak (EJ8010) opened to sterile field. 9:22:02 Chappell [place] IVUS Catheter (09175K) opened to sterile field. 9:22:08 GUIDE 6FR XBLAD 4.0 catheter ([id number]) opened to sterile field. 9:22:21 6 Fr XBLAD 4 guide catheter was inserted over the wire 9:22:26 CHOICE PT ES wire advanced. 9:23:28 Heparin Bolus 4000 units I.V. was administered by Deepika Adams RN; for anticoagulation; verified with dr lópez 9:24:05 Wire advanced across lesion. 9:24:08 IVUS catheter advanced over wire. 9:27:03 IVUS pass to LAD lesion performed. 9:27:03 IVUS catheter removed over wire. 9:28:02 Place stent Inflation Number: 1 A ALISIA RX 4.0 x 15 stent ([id number]) was prepped and advanced across the Prox LAD. The stent was deployed at 16 LOUIS for 0:10 (min:sec). 9::24 Inflation number: 2 The stent balloon was then re-inflated across the Prox LAD to 19 LOUIS for 0:10 (min:sec). 9:29:14 Stent catheter was removed intact over wire. 9:29:14 Wire removed. 9:29:19 Guide catheter removed. 9:29:25 A MULTIPACK 3DRC 5Fr catheter was advanced over the wire and used for Procedure. 9:30:38 Right subclavian angiography performed 9:30:40 Right carotid angiography performed. 9:30:43 Left carotid angiography performed. 9:31:54 Catheter removed. 9:32:00 EXOSEAL 6Fr (EX600) opened to sterile field. 9:32:20 Sheath removed intact; hemostasis achieved with Exoseal to the Right Femoral artery. 9:32:22 Procedure ended.(Physican Out) 9:34:23 Fluoroscopy time 04.60 minutes. 9:34:27 Flurop Dose total: 967 9:34:27 Fluoroscopy dose: 967 mGy 9:34:32 Contrast amount:Isovue 300 108ml. 9:34:33 Sharps counted by scrub and verified by R.N. 9:34:35 Insertion/operative site no bleeding no hematoma. 9:34:37 Post-op/insertion site Right Femoral artery dressed using a 4 x 4 and Tegaderm. 9:34:41 Post right femoral artery:stable, soft, clean and dry 9:34:43 Post Procedure Pulses reassessed and unchanged 9:34:46 Post-procedure physical assessment completed. ASA score P 2 - A patient with mild systemic disease as per Adonis López MD. 9:34:48 Post procedure rhythm: unchanged. 9:34:51 Estimated blood loss: 10 ml 9:34:53 Post procedure instruction explained to patient.Patient verbalizes understanding. 9:34:54 Patient needs reinforcement of post procedure teaching. 9:35:57 Procedure type changed to Cath procedure, Diagnostic procedure, LHC, LHC w/Coronaries, FFR/IVUS, Intra-Coronary IVUS Initial, Sedation Charges, Moderate Sedation up to 15 minutes, PCI procedure, Coronary Stent, Coronary Stent Initial 9:40:18 Procedure and supply charges have been captured, reviewed, submitted and are correct. 9:40:20 Procedure Complication : No complications 9:40:22 Vital chart was stopped 9:40:23 See physician's report for complete and final results. 9:40:26 Report given to PCU. 9:40:30 Patient transfered to PCU with Stretcher. 9:40:32 Procedure ended. 9:40:32 Full Disclosure recording stopped 9:40:35 End room use (Document Last) Intervention Summary Intervention Notes Time ActionType Lesion and Equipment Used Action# Pressure Duration Attributes 9:28:[address] stent Prox LAD ALISIA RX 4.0 x 1 16 00:10 15 stent ([id number]) 9:28:24 Reinflate Prox LAD ALISIA RX 4.0 x 2 19 00:10 stent 15 stent balloon ([id number]) Device Usage Item Name Manufacture Quantity Catalog Number Hospital Part Current Minimal Lot# / Charge Number Stock Stock Serial# Code ACIST Syringe Acist 1 44514 [id number] 430496 [id number] 20 (94174) Medical Systems Inc Bag Decanter Microtek 1 2001S 253097 01714 031945 5 (2001S) Medical Inc. Medline Cath Cardinal 1 [id number] 051235 72608 882970 5 Pack Health ([id number]) ACIST Hand Acist 1 82532 311579 584785 416361 5 Control (55292) Medical Systems Inc ACIST Manifold Acist 1 40558 671963 842763 907367 5 (81795) Medical Systems Inc Tegaderm 4 x 4 3M 1 1626W 281600 587054 306732 5 (1626W) DIAGNOSTIC Cardinal 1 OR8834 234258 81615 929293 30 Multipack 5Fr Health catheter set (XZ1136) DIAGNOSTIC WIRE St Dexter 1 540214 652630 727385 283042 30 .035 260cm J wire (878835) SHEATH Prelude Merit 1 EHI-6J-42-35 305451 5076978 175144 5 6Fr 0.035 Medical (GQM-1B-07-035) MULTIPACK Cardinal 1 373420 5 Pigtail 5 Fr Health catheter MULTIPACK JL Cardinal 1 194874 5 4.0 5Fr Health catheter MULTIPACK 3DRC Cardinal 1 241992 5 5Fr catheter Health CHOICE PT Extra [place] 1 [id number] 641848 472177 191628 5 Support 182cm Scientific wire ([id number]) INFLATOR Merit Merit 1 ZA5640 681035 925655 769781 15 BasixCompak Medical (UF6993) Chappell Chappell 1 14823K 051068 756964 517191 8 [place] IVUS Catheter (66207V) GUIDE 6FR XBLAD Cardinal 1 [id number] 394253 592437 833259 3 4.0 catheter Health (63922149) ALISIA RX 4.0 x Medtronic 1 [id number] 030983 8912707 035674 5 [id number] 15 stent ([id number]) EXOSEAL 6Fr Cardinal 1 EX600 993361 313774 589783 10 (EX600) Health Signature Audit [place] Stage Time Signature Unsigned Intra-Procedure 11/16/2017 Mitesh Gomez 9:42:26 AM RT(R) Signatures Monitor : Mitesh Gomez RT Signature : Date : Time : [id number] [facility] [address]
[~2017-11-15 16:10] MED LIST changes: +NORCO 7.5/325 T1 TA1 PO
[2017-11-15 16:37] VITALS: BP 115/77
[2017-11-15 16:40] LABS: BASOPHILS 0.5 % (0-2); EOSINOPHILS 4.9 % (0-7); HEMOGLOBIN 17.1 g/dL (13.5-17.5); IMMATURE GRANULOCYTES 0.4 % (0-5); LYMPHOCYTES 31.1 % (15-50); MCH 30.9 pg (26.0-34.0); MCHC 35.6 g/dL (31.0-37.0); MCV 86.6 fL (80.0-100.0); MEAN PLATELET VOLUME 10.7 fL (7.4-10.4); MONOCYTES 7.7 % (2-11); NEUTROPHILS 55.4 % (40-80); PLATELET COUNT 242 10x3/uL (130-400); RBC 5.54 10x6/uL (4.20-6.10); RDW 12.8 % (11.5-14.5); WBC 12.3 10x3/uL (4.8-10.8)
[2017-11-15 17:10] LABS: ALBUMIN 3.5 g/dL (3.4-5.0); ALKALINE PHOSPHATASE 109 U/L (46-116); ALT (SGPT) 33 U/L (10-68); BILIRUBIN - TOTAL 0.25 mg/dL (0.2-1.3); CALCIUM 8.9 mg/dL (8.5-10.1); CHLORIDE - SERUM 104 mmol/L (98-107); CKMB 0.5 U/L (0.0-3.6); CREATINE KINASE 34 UL (21-232); POTASSIUM - SERUM 3.7 mmol/L (3.5-5.1); PROTEIN - SERUM 7.5 g/dL (6.4-8.2); SODIUM 139 mmol/L (136-145); UREA NITROGEN 14 mg/dL (7-18); eGFR NON AFRICAN AMERICAN 85 mL/min (90-120)
[2017-11-15 17:11] LABS: CALC OSMOLALITY 279 mosm/kg (275-300); CARBON DIOXIDE 23.7 mmol/L (21.0-32.0); GLUCOSE 121 mg/dL (74-106); TROPONIN-I < 0.017 ng/mL (0.000-0.060)
[2017-11-15 17:19] LABS: INR 0.95 (0.85-1.17); PROTIME 12.3 SECONDS (11.6-15.0)
[2017-11-15 17:20] LABS: APTT 25.2 SECONDS (22.8-39.4)
[2017-11-15 17:21] LABS: D-DIMER-QUANTITATIVE < 0.27 ug/mLFEU (0.20-0.54)
[2017-11-15 20:00] VITALS: BP 119/88
[2017-11-15 21:43] VITALS: BP 119/88; Ht 172.7 cm; Wt 100.1 kg
[2017-11-15] MEDS ORDERED: LEXAPRO10 MG PO (21:55)
[2017-11-16] VITALS: BP 117/69
[2017-11-16 04:00] VITALS: BP 127/73
[2017-11-16 08:30] VITALS: BP 121/74
[2017-11-16 12:58] VITALS: BP 126/78
[2017-11-16 16:11] VITALS: BP 140/82
== END 2017-11-16 18:00 | disposition home or self-care (01) ==
LOC: OBSVTIME → D.CATH 16:10 → D.ER 16:10 → OBSVTIME 18:04 → D.ER 18:04 → D.M2 18:04 → D.ER 18:20 → D.M2 11-16 18:00 → D.CATH 11-16 18:00
PROVIDERS: Family Medicine
DX: I25.110 Atherosclerotic heart disease of native coronary artery with unstable angina pectoris (principal); R55 Syncope and collapse; I77.9 Disorder of arteries and arterioles, unspecified; I10 Essential (primary) hypertension; E78.5 Hyperlipidemia, unspecified; I25.5 Ischemic cardiomyopathy

== ENCOUNTER 2017-11-27 20:57 | Inpatient (IN) | payer BC ==
[~2017-11-27] VITALS: Ht 172.7 cm; Wt 95.0 kg
--- NOTE | ~2017-11-27 | OP ---
PATIENT NAME: NOE WASHBURN MEDICAL RECORD: [id number] :68 LOCATION:D.M2 D.2119 ADMISSION DATE:11/28/17 SURGEON: DANILO CHAKRABORTY MD DATE OF OPERATION: 11/28/2017 PROCEDURE: Left heart catheterization, selective coronary angiography, right femoral artery approach. CATHETERS: A 5-Amharic sheath, 5/4 left and right César, 5/4 pig. The procedure was well tolerated and the patient was returned to gross. After sheath removed, ExoSeal device was placed. FINDINGS: Left ventriculography in 30-degree SOUZA view: Normal wall motion. Normal systolic function. CORONARY ANATOMY: LEFT MAIN: Left main is free of disease. LAD: An area of previous stenting is widely patent. No evidence of restenosis, thrombosis, or edge dissection. CIRCUMFLEX: Codominant system. Free of disease. RIGHT CORONARY: Again, codominant system. Previously placed stent is widely patent. No evidence of edge dissection, etc. IMPRESSION: Noncardiac cause of chest pain. TRANSINT:[id number] Voice Confirmation ID: [id number] DOCUMENT ID: [id number] DANILO CHAKRABORTY MD at 1135 CC: [id number] DICTATION DATE: 11/28/17 1516 ASSEMBLY INSPECTOR HELPER: 11/28/17 1532 ADM [address] [place] [address]
--- NOTE | ~2017-11-27 | HEMODYNAMI ---
PATIENT:NOE WASHBURN MEDICAL RECORD: [id number] : 68 LOCATION:[facility] D.2119 ADMISSION DATE: 11/28/17 Generatedon:11/28/201715:17 Patient name: NOE WASHBURN Patient #: [id number] SSN: : Date of study: 11/28/2017 Page: Of Hemodynamic Procedure Report Patient Data Patient Demographics Procedure consent was obtained First Name: NOE Gender: Male Last Name: WU : 1970 Middle Initial: P Age: 47 year(s) Patient #: [id number] Race: Unknown Additional ID: [id number] Contact details Address: [place] [address] State: [place] City: [place] Zip code: [address] Past Medical History Allergies: No known allergies Admission Admission Data Admission Date: 11/28/2017 Admission Time: 0:57 Room #: D.2119 Height (in.): 67.72 BSA: 2.08 (m2) Height (cm.): 172 BMI: 32.11 (kg/m2) Weight (lbs.): 209.44 Weight (kg.): 95 Lab Results Lab Result Date: 11/28/2017 Lab Result Time: 3:27 Biochemistry Name Units Result Min Max BUN mg/dl 11 --(-*--)-- 7 18 Creatinine mg/dl 0.8 --(-*--)-- 0.6 1.3 CBC Name Units Result Min Max Hematocrit % 44.8 --(*---)-- 42 54 Hemoglobin g/dl 15.7 --(--*-)-- 13.5 17.5 Procedure Procedure Types Cath Procedure Diagnostic Procedure [facility] w/Coronaries Procedure Description Procedure Date Procedure Date: 11/28/2017 Procedure Start Time: 15:04 Procedure End Time: 15:12 Procedure Staff Name Function Chandler Vogel MD Performing Physician Sunshine Tai RT Monitor Lori Montes RN Breast Buffer Elena Counts RT Monitor Deepika Adams RN Nurse Mitesh Gomez RT Scrub Procedure Data Cath Procedure Fluoroscopy Diagnostic fluoroscopy Total fluoroscopy Time: 1.1 time: 1.1 min min Diagnostic fluoroscopy Total fluoroscopy dose: 177 dose: 177 mGy mGy Contrast Material Contrast Material Type Amount (ml) Isovue 300 59 Entry Location Entry Primary Successful Side Size Upsize Upsize Entry Closure Succes sful Closure Location (Fr) 1 (Fr) 2 (Fr) Remarks Device Remarks Femoral Right 5 Fr Exoseal artery Estimated blood loss: 5 ml Diagnostic catheters Device Type Used For End Catheter Placement MULTIPACK JL 4.0 5Fr Left Coronary catheter Angiography MULTIPACK 3DRC 5Fr Right Coronary catheter Angiography MULTIPACK Pigtail 5 Fr LV Angiography catheter Procedure Complications No complications Procedure Medications Medication Administration Route Dosage 0.9% NaCl I.V. 100 ml/hr Oxygen etCO2 Nasal cannula 2 l/min Lidocaine 2% 20 Heparin Flush Bag added to field 2 bags (1000units/500ml NS) Versed I.V. 2 mg Fentanyl I.V. 100 mcg Versed I.V. 2 mg Fentanyl I.V. 100 mcg Fentanyl I.V. 25 mcg Hemodynamics Rest BSA: 2.08 (m2) HGB: 15.7 (g/dl) O2 Consumption: Estimated: 249.29 (ml/min) O2 Co nsumption indexed: Estimated:119.85 (ml/min/m) Heart Rate: 69 (bpm) Pressure Samples Time Site Value (mmHg) Purpose Heart Use Rate(bpm) 15:08 LV 133/21,24 EDP 86 Gradients Valve Time Site Site Mean SEP/DFP Peak To Heart Use 1 2 (mmHg) (sec/min) Peak Rate (mmHg) (bpm) Aortic 15:09 LV AO 79 Snapshots Pre Cath Intra NCS Post Cath Vital Signs Time Heart Resp SPO2 etCO2 NIBP (mmHg) Rhythm Pain Sedation Rate (ipm) (%) (mmHg) Status Level (bpm) 14:33:41 73 19 98 35 131/94(123) NSR 0 (11) 10(A) , No pain 14:37:55 69 14 95 35.3 149/97(127) NSR 0 (11) 10(A) , No pain 14:42:13 82 11 95 34.5 149/96(122) NSR 0 (11) 10(A) , No pain 14:46:31 81 20 95 44.3 148/93(113) NSR 0 (11) 10(A) , No pain 14:50:47 82 25 94 68.7 140/94(121) NSR 0 (11) 10(A) , No pain 14:55:05 87 21 91 36 127/90(109) NSR 0 (11) 10(A) , No pain 14:59:15 83 12 93 47.2 133/89(118) NSR 0 (11) 10(A) , No pain 15:03:29 85 14 94 46.5 140/90(121) NSR 0 (11) 10(A) , No pain 15:07:41 83 13 92 131/90(110) NSR 0 (11) 10(A) , No pain 15:11:57 88 16 93 128/85(110) NSR 0 (11) 10(A) , No pain Medications Time Medication Route Dose Verified Delivered Reason Notes Effe ctiveness by by 14:33:49 0.9% NaCl I.V. 100 Chandler Lori used for ml/hr Lela Simon procedure MD HENNING 14:33:58 Oxygen etCO2 2 Chandler Lori used for Nasal l/min Lela Simon procedure cannula MD HENNING 14:35:03 Lidocaine 2% 20ml Chandler Lori used for vial Lela Simon procedure MD HENNNIG 14:35:09 Heparin Flush added 2 Chandler Lori used for Bag to bags Lela Simon procedure (1000units/500ml field RN NS) 15:03:17 Versed I.V. 2 mg Chandler Her[address]ie for [facility] RN sedation 15:03:23 Fentanyl I.V. 100 Chandler Herreraie for mcg [facility] RN sedation 15:07:21 Versed I.V. 2 mg Chandler Javierie for [facility] RN sedation 15:07:26 Fentanyl I.V. [address] Chandler [address] for mcg [facility] RN sedation 15:10:41 Fentanyl I.V. 25 Chandler Herreraie for [facility] RN sedation Procedure Log Time Note 14:08:59 Patient Height : 67.72 inches 14:09:03 Patient Weight : 209.44 lbs 14:09:58 Diagnostic Cath status Elective 14:10:13 Trevor Stewart RN sent for patient. Start room use. 14:10:14 Time tracking: Regular hours (M-F 7:00 - 5:00) 14:10:21 Plan of Care:Hemodynamics will remain stable., Cardiac rhythm will remain stable., Comfort level will be maintained., Respiratory function will remain adequate., Patient/ family verbilizes understanding of procedure., Procedure tolerated without complication., Recovers from procedure without complications.. 14:10:59 Patient received from Med II to CCL 3 Alert and oriented. Tansferred to table in Supine position. 14:15:19 H&P Date Dictated: 11/27/2017 Within 30 days and on chart., H&P Addendum completed by physician on day of procedure. (MUST COMPLETE FOR ALL OUTPATIENTS). 14:15:21 Pre-procedure instructions explained to patient. 14:15:23 Family in patients room. 14:15:25 Patient NPO since Midnight. 14:23:08 Is the patient allergic to Iodine/contrast media? No. 14:23:10 Was the patient premedicated? Yes 14:23:18 Is patient on blood thinner?Yes 14:23:31 ACC The patient was administered the following blood thiners within the last 24 hours: ACCPlavix 14:23:36 Patient diabetic? Yes. 14:23:41 If diabetic: On Metformin? Yes 14:23:44 If on Metformin: Last Dose? 11/27/2017 14:23:54 Snore? Yes 14:23:56 Sleep apnea? Yes 14:24:07 Patient pain scale 0/10 ?. 14:24:27 IV left forearm D/C'd due to infiltration. 14:24:40 IV started by Trevor Stewart RN [facility] forearm with a 22 gauge IV catheter with 0.9% NaCl at KVO. 14:24:44 Lab results completed and on chart. 14:24:48 Right groin area was prepped with chlora-prep and draped in sterile fashion 14:24:50 Alarms reviewed by R. N. 14:24:50 Sharps counted by scrub and verified by R.N. 14:24:58 Physician paged 14:25:09 Use device set Femoral Dx 14:25:10 ACIST Syringe (50764) opened to sterile field. 14:25:11 Bag Decanter (2002) opened to sterile field. 14:25:11 Medline Cath Pack ([id number]) opened to sterile field. 14:25:12 DIAGNOSTIC WIRE .035 260cm J wire (936055) opened to sterile field. 14:25:14 ACIST Hand Control (86555) opened to sterile field. 14:25:14 ACIST Manifold (16034) opened to sterile field. 14:25:15 DIAGNOSTIC Multipack 5Fr catheter set (DM1139) opened to sterile field. 14:25:16 Tegaderm 4 x 4 (1626W) opened to sterile field. 14:25:27 PERCUTANEOUS ENTRY 19GA needle opened to sterile field. 14:25:29 SHEATH Prelude 5Fr 0.035 (MCZ-5M-30-035) opened to sterile field. 14:26:19 Warm blankets applied, and gilma hugger turned on for patient comfort. 14:26:20 Correct patient and procedure confirmed by team. 14:26:25 Signed procedure consent form obtained from patient. 14:30:10 ECG and BP/O2 sat monitors applied to patient. 14:30:15 Vital chart was started 14:30:26 Baseline sample Acquired. 14:30:31 Rhythm: sinus rhythm 14:30:34 Full Disclosure recording started 14:33:49 0.9% NaCl 100 ml/hr I.V. was administered by Lori Montes RN; used for procedure; 14:33:58 Oxygen 2 l/min etCO2 Nasal cannula was administered by Lori Montes RN; used for procedure; 14:35:03 Lidocaine 2% 20ml vial was administered by Lori Montes RN; used for procedure; 14:35:09 Heparin Flush Bag (1000units/500ml NS) 2 bags added to field was administered by Lori Montes RN; used for procedure; 15:02:10 Final Timeout: patient, procedure, and site verified with staff and physician. All members of the team are in agreement. 15:02:13 Right groin site verified by team. 15:02:16 Physical assessment completed. ASA score P 2 - A patient with mild systemic disease as per Chandler Vogel MD. 15:02:19 Sedation plan: IV Moderate Sedation Medication:Versed, Fentanyl 15:03:14 Procedure started. 15:03:17 Versed 2 mg I.V. was administered by Buffie Adams RN; for sedation; 15::23 Fentanyl 100 mcg I.V. was administered by Deepika Adams RN; for sedation; 15::22 Local anesthetic to right femoral artery with Lidocaine 2% by Chandler Vogel MD.INITIAL ACCESS ONLY 15:04:32 A 5 Fr sheath was inserted into the Right Femoral artery 15:04:49 A MULTIPACK JL 4.0 5Fr catheter was advanced over the wire and used for Left Coronary Angiography. 15:06:15 Catheter removed. 15::29 A MULTIPACK 3DRC 5Fr catheter was advanced over the wire and used for Right Coronary Angiography. 15:07:21 Versed 2 mg I.V. was administered by Deepika Adams RN; for sedation; 15::26 Fentanyl 100 mcg I.V. was administered by Deepika Adams RN; for sedation; 15::27 Catheter removed. 15:07:34 A MULTIPACK Pigtail 5 Fr catheter was advanced over the wire and used for LV Angiography. 15:09:04 LV gram done using SOUZA 15::10 EF : 55 % 15::14 Injector settings: Ml/sec: 10, Volume: 20, 15:09:20 Catheter removed. 15::29 Sheath removed intact; hemostasis achieved with Exoseal to the Right Femoral artery. 15::31 Procedure ended.(Physican Out) 15:09:45 Fluoroscopy time 01.10 minutes. 15:09:51 Flurop Dose total: 177 15:09:51 Fluoroscopy dose: 177 mGy 15:10:08 Contrast amount:Isovue 300 59ml. 15:10:10 Sharps counted by scrub and verified by R.N. 15:10:11 Insertion/operative site no bleeding no hematoma. 15:10:14 Post-op/insertion site Right Femoral artery dressed using a 4 x 4 and Tegaderm. 15:10:18 Post right femoral artery:stable, clean and dry 15:10:20 Post Procedure Pulses reassessed and unchanged 15::23 Post-procedure physical assessment completed. ASA score P 2 - A patient with mild systemic disease as per Chandler Vogel MD. 15:10:25 Post procedure rhythm: unchanged. 15:10:27 Estimated blood loss: 5 ml 15::29 Post procedure instruction explained to patient.Patient verbalizes understanding. 15:10:29 Patient needs reinforcement of post procedure teaching. 15:10:41 Fentanyl 25 mcg I.V. was administered by Deepika Adams RN; for sedation; 15:11:00 Procedure Complication : No complications 15:11:02 See physician's report for complete and final results. 15:11:14 EXOSEAL 5Fr (EX500) opened to sterile field. 15:11:43 Procedure and supply charges have been captured, reviewed, submitted and are correct. 15:11:46 Vital chart was stopped 15:11:49 Report given to PCU. 15:11:59 Patient transfered to PCU with Bed. 15:12:05 Procedure ended. 15:12:05 Full Disclosure recording stopped 15:12:09 End room use (Document Last) Device Usage Item Name Manufacture Quantity Catalog Number Hospital Part Current M inimal Lot# / Charge Number Stock Stock Serial# Code ACIST Syringe Acist 1 38914 848966 983660 135173 2 0 (60951) [employer] Bag Decanter Microtek 1 232942 28636 333140 5 () Medical Inc. Medline Cath Cardinal 1 [id number] 695955 13793 626775 5 Pack Health ([id number]) DIAGNOSTIC WIRE St Dexter 1 622322 550143 483129 457738 3 0 .035 260cm J wire (080061) ACIST Hand Acist 1 28801 793171 751981 021068 5 Control (57782) [employer] Inc ACIST Manifold Acist 1 14878 959377 179837 535911 5 (29447) [employer] Inc DIAGNOSTIC Cardinal 1 [id number] 712464 67406 943248 3 0 Multipack 5Fr Health catheter set (WD6824) Tegaderm 4 x 4 3M 1 1626W 450444 170777 519324 5 (1626W) PERCUTANEOUS Cook Medical 1 [id number] 976089 631047 5 ENTRY 19GA needle SHEATH Prelude Merit 1 JQB-5X-15-035 048549 835328 782675 5 5Fr 0.035 Medical (WLW-6A-77-035) MULTIPACK JL Cardinal 1 293805 5 4.0 5Fr Health catheter MULTIPACK 3DRC Cardinal 1 508373 5 5Fr catheter Health MULTIPACK Cardinal 1 115574 5 Pigtail 5 Fr Health catheter EXOSEAL 5Fr Cardinal 1 EX500 013184 321618 189614 1 0 (EX500) Health Signature Audit [place] Stage Time Signature Unsigned Intra-Procedure 11/28/2017 Elena 3:17:02 PM Counts RT(R) Signatures Monitor : Sunshine Tai Signature : RT Date : Time : Monitor : Elena Signature : Counts RT Date : Time : [address] [place] [address]
[~2017-11-27 20:57] MED LIST changes: +LEXAPRO10 MG PO
[2017-11-27 21:21] LABS: BASOPHILS 0.6 % (0-2); EOSINOPHILS 4.9 % (0-7); HEMATOCRIT 46.5 % (42.0-54.0); HEMOGLOBIN 16.3 g/dL (13.5-17.5); IMMATURE GRANULOCYTES 0.5 % (0-5); LYMPHOCYTES 40.3 % (15-50); MCH 30.5 pg (26.0-34.0); MCHC 35.1 g/dL (31.0-37.0); MCV 87.1 fL (80.0-100.0); MEAN PLATELET VOLUME 11.7 fL (7.4-10.4); MONOCYTES 6.6 % (2-11); NEUTROPHILS 47.1 % (40-80); RBC 5.34 10x6/uL (4.20-6.10); RDW 12.6 % (11.5-14.5); WBC 9.4 10x3/uL (4.8-10.8)
[2017-11-27 21:26] LABS: PLATELET COUNT 107 10x3/uL (130-400)
[2017-11-27 21:31] VITALS: BP 160/61
[2017-11-27 21:43] LABS: APTT 28.6 SECONDS (22.8-39.4); INR 2.32 (0.85-1.17); PROTIME 24.8 SECONDS (11.6-15.0)
[2017-11-27 21:45] LABS: D-DIMER-QUANTITATIVE 0.33 ug/mLFEU (0.20-0.54)
[2017-11-27 21:46] LABS: ALBUMIN 3.3 g/dL (3.4-5.0); ALKALINE PHOSPHATASE 103 U/L (46-116); ALT (SGPT) 38 U/L (10-68); BILIRUBIN - TOTAL 0.37 mg/dL (0.2-1.3); CALC OSMOLALITY 275 mosm/kg (275-300); CALCIUM 8.8 mg/dL (8.5-10.1); CARBON DIOXIDE 23.6 mmol/L (21.0-32.0); CHLORIDE - SERUM 105 mmol/L (98-107); CREATININE - SERUM 0.7 mg/dL (0.6-1.3); GLUCOSE 115 mg/dL (74-106); POTASSIUM - SERUM 3.8 mmol/L (3.5-5.1); PROTEIN - SERUM 7.3 g/dL (6.4-8.2); SODIUM 138 mmol/L (136-145); UREA NITROGEN 11 mg/dL (7-18); eGFR NON AFRICAN AMERICAN > 90 mL/min (90-120)
[2017-11-27 21:58] LABS: CKMB 0.5 U/L (0.0-3.6); CREATINE KINASE 48 UL (21-232); MAGNESIUM - SERUM 1.7 mg/dL (1.8-2.4)
[2017-11-27 22:01] LABS: TROPONIN-I < 0.017 ng/mL (0.000-0.060)
[2017-11-27 22:30] VITALS: BP 158/70
[2017-11-28] VITALS: BP 132/85
[2017-11-28 04:00] VITALS: BP 121/80
[2017-11-28 04:35] LABS: BASOPHILS 0.9 % (0-2); EOSINOPHILS 6.7 % (0-7); HEMATOCRIT 44.8 % (42.0-54.0); HEMOGLOBIN 15.7 g/dL (13.5-17.5); IMMATURE GRANULOCYTES 0.3 % (0-5); LYMPHOCYTES 38.7 % (15-50); MCH 30.7 pg (26.0-34.0); MCV 87.7 fL (80.0-100.0); MEAN PLATELET VOLUME 11.4 fL (7.4-10.4); MONOCYTES 8.6 % (2-11); NEUTROPHILS 44.8 % (40-80); RBC 5.11 10x6/uL (4.20-6.10); RDW 12.5 % (11.5-14.5)
[2017-11-28 04:41] LABS: ALBUMIN 2.9 g/dL (3.4-5.0); ALKALINE PHOSPHATASE 103 U/L (46-116); ALT (SGPT) 35 U/L (10-68); BILIRUBIN - TOTAL 0.23 mg/dL (0.2-1.3); CALCIUM 8.1 mg/dL (8.5-10.1); CARBON DIOXIDE 26.7 mmol/L (21.0-32.0); CHLORIDE - SERUM 102 mmol/L (98-107); CKMB 0.3 U/L (0.0-3.6); CREATINE KINASE 34 UL (21-232); CREATININE - SERUM 0.8 mg/dL (0.6-1.3); PROTEIN - SERUM 6.6 g/dL (6.4-8.2); SODIUM 137 mmol/L (136-145); UREA NITROGEN 11 mg/dL (7-18); eGFR NON AFRICAN AMERICAN > 90 mL/min (90-120)
[2017-11-28 04:53] LABS: PLATELET COUNT 224 10x3/uL (130-400)
[2017-11-28 04:56] LABS: CALC OSMOLALITY 282 mosm/kg (275-300); GLUCOSE 272 mg/dL (74-106); POTASSIUM - SERUM 3.2 mmol/L (3.5-5.1); TROPONIN-I < 0.017 ng/mL (0.000-0.060)
[2017-11-28 04:59] VITALS: BP 132/85; Ht 172.7 cm; Wt 95.0 kg
[2017-11-28 09:17] VITALS: BP 156/82
[2017-11-28 10:09] LABS: BASOPHILS 0.6 % (0-2); EOSINOPHILS 6.4 % (0-7); HEMATOCRIT 45.6 % (42.0-54.0); HEMOGLOBIN 15.9 g/dL (13.5-17.5); IMMATURE GRANULOCYTES 0.3 % (0-5); LYMPHOCYTES 32.5 % (15-50); MCH 30.2 pg (26.0-34.0); MCHC 34.9 g/dL (31.0-37.0); MCV 86.7 fL (80.0-100.0); MEAN PLATELET VOLUME 11.2 fL (7.4-10.4); MONOCYTES 7.9 % (2-11); NEUTROPHILS 52.3 % (40-80); PLATELET COUNT 228 10x3/uL (130-400); RBC 5.26 10x6/uL (4.20-6.10); RDW 12.5 % (11.5-14.5); WBC 7.2 10x3/uL (4.8-10.8)
[2017-11-28 10:48] LABS: INR 0.91 (0.85-1.17); PROTIME 11.9 SECONDS (11.6-15.0)
[2017-11-28 10:49] LABS: CALC OSMOLALITY 274 mosm/kg (275-300); CALCIUM 8.3 mg/dL (8.5-10.1); CARBON DIOXIDE 26.3 mmol/L (21.0-32.0); CHLORIDE - SERUM 105 mmol/L (98-107); CKMB 0.5 U/L (0.0-3.6); CREATINE KINASE 38 UL (21-232); CREATININE - SERUM 0.7 mg/dL (0.6-1.3); GLUCOSE 129 mg/dL (74-106); POTASSIUM - SERUM 3.7 mmol/L (3.5-5.1); SODIUM 137 mmol/L (136-145); TROPONIN-I < 0.017 ng/mL (0.000-0.060); UREA NITROGEN 9 mg/dL (7-18); eGFR NON AFRICAN AMERICAN > 90 mL/min (90-120)
[2017-11-28 11:38] VITALS: BP 134/85
[2017-11-28 16:32] LABS: CKMB 0.3 U/L (0.0-3.6); CREATINE KINASE 36 UL (21-232)
[2017-11-28 16:33] LABS: TROPONIN-I < 0.017 ng/mL (0.000-0.060)
[2017-11-28 20:00] VITALS: BP 117/81
[2017-11-29] VITALS: BP 123/86
[2017-11-29 04:00] VITALS: BP 163/66
[2017-11-29 07:50] VITALS: BP 1592/91
[2017-11-29 11:23] VITALS: BP 130/87
== END 2017-11-29 13:35 | disposition home or self-care (01) | DRG 287 ==
LOC: D.ER 20:57 → D.M2 11-28 00:57
PROVIDERS: Family Medicine; Internal Medicine Cardiovascular Disease
PROC: B2151ZZ Fluoroscopy of Left Heart using Low Osmolar Contrast (ICD-10-PCS; 2017-11-28)
PROC: 4A023N7 Measurement of Cardiac Sampling and Pressure, Left Heart, Percutaneous Approach (ICD-10-PCS; 2017-11-28)
PROC: B2111ZZ Fluoroscopy of Multiple Coronary Arteries using Low Osmolar Contrast (ICD-10-PCS; principal; 2017-11-28 11:30)
DX: R07.89 Other chest pain (principal); I25.10 Atherosclerotic heart disease of native coronary artery without angina pectoris; E78.5 Hyperlipidemia, unspecified; E11.9 Type 2 diabetes mellitus without complications; I10 Essential (primary) hypertension; F32.9 Major depressive disorder, single episode, unspecified; F41.9 Anxiety disorder, unspecified; K21.9 Gastro-esophageal reflux disease without esophagitis; I25.5 Ischemic cardiomyopathy; Z95.1 Presence of aortocoronary bypass graft; Z72.0 Tobacco use

== ENCOUNTER 2018-04-24 18:14 | Observation (INO) | payer BC ==
[~2018-04-24] VITALS: Ht 172.7 cm; Wt 111.9 kg
--- NOTE | ~2018-04-24 | EC ---
PATIENT:NOE WASHBURN DATE OF SERVICE: 04/24/18 SEX: M MEDICAL RECORD: [id number] DATE OF : [birth year] LOCATION:D.M2 D.211 AGE OF PATIENT: 48 ADMISSION DATE: 04/24/18 REFERRING PHYSICIAN: INTERPRETING PHYSICIAN: ALPHONSE BAILEY MD ECHOCARDIOGRAM REPORT ECHO CHARGES 4 ECHO COMPLETE Date: 04/25/18 CLINICAL DIAGNOSIS: SOB/FATIGUE HX CAD/STENT ECHOCARDIOGRAPHIC MEASUREMENTS (adult normal given) AC root (d.<3.7cm) 3.6 cm LV Septum d (<1.2 cm> 1.3 cm Valve Excursion 16 cm LV Septum (systole) 1.5 cm Left Atria (s.<4.0cm> 3.1 cm LVPW d(<1.2cm) 1.9 cm RV (d.<2.3cm) 3.0 cm LVPW (sytole) 2.1 cm LV diastole(<5.6CM) 5.8 cm MV E-F(>70mm/sec) cm LV systole 3.7 cm LVOT Diameter 2.2 cm MV exc.(>10mm) 1.8 cm Est.ejection fraction (50-75%) % DOPPLER: LVIT cm/sec A 90.0 cm/sec E 76.0 cm/sec LA cm/sec RVSP 16 mmHg LVOT 89 cm/sec AOP1/2T m/s Asc. Ao 122 cm/sec RVOT 105 cm/sec RA cm/sec PA 164 cm/sec AV Gradient Peak 5.99 mmHg AV Mean 2.96 mmHg AV Area 3.0 cm MV Gradient Peak 3.55 mmHg MV Mean 1.83 mmHg MV Area cm COMMENTS: Senior Linux Systems Administrator: Yvette STEVENS Hunting Guide: 3 Dr. Omalley TAPE# PACS Pericardial Effusion N DATE OF SERVICE: 04/25/2018 PROCEDURE: Echocardiogram. FINDINGS: 1. Left ventricular chamber size is within normal limits. Left ventricular systolic function is normal. Overall ejection fraction estimated at 55%. 2. Left atrium, right atrium, and right ventricle chamber sizes are within normal limits. 3. Valvular structures have normal structure and motion. ECHOCARDIOGRAM REPORT [id number] NOE WASHBURN 4. Doppler interrogation reveals no significant valvular insufficiency or stenosis. 5. No evidence of pericardial effusion or left ventricular thrombus. TRANSINT:[id number] Voice Confirmation ID: [id number] DOCUMENT ID: [id number] ALPHONSE BAILEY MD CC: [id number] DICTATION DATE: 04/25/18 1132 BUMPER OPERATOR: 04/25/18 1200 ADM IN [place] [id number] [place] [id number]
--- NOTE | 2018-04-24 18:20 | NUR ---
NEW ADMIT FROM DR. BUSTILLOS OFFICE. OREINTED TO ROOM. CALL LIGHT IN REACH. WILL CONT. PLAN OF CARE.
[2018-04-24] MEDS ORDERED: LEXAPRO10 MG PO (18:28)
[2018-04-24 19:10] LABS: BASOPHILS 0.6 % (0-2); EOSINOPHILS 8.1 % (0-7); HEMATOCRIT 47.2 % (42.0-54.0); HEMOGLOBIN 16.7 g/dL (13.5-17.5); IMMATURE GRANULOCYTES 0.3 % (0-5); LYMPHOCYTES 33.1 % (15-50); MCH 30.7 pg (26.0-34.0); MCHC 35.4 g/dL (31.0-37.0); MCV 86.8 fL (80.0-100.0); NEUTROPHILS 50.9 % (40-80); PLATELET COUNT 237 10x3/uL (130-400); RBC 5.44 10x6/uL (4.20-6.10); RDW 12.4 % (11.5-14.5); WBC 12.2 10x3/uL (4.8-10.8)
[2018-04-24 19:29] LABS: ALBUMIN 3.3 g/dL (3.4-5.0); ALKALINE PHOSPHATASE 141 U/L (46-116); ALT (SGPT) 27 U/L (10-68); BILIRUBIN - TOTAL 0.26 mg/dL (0.2-1.3); CALC OSMOLALITY 278 mosm/kg (275-300); CALCIUM 8.4 mg/dL (8.5-10.1); CARBON DIOXIDE 24.3 mmol/L (21.0-32.0); CHLORIDE - SERUM 100 mmol/L (98-107); CREATININE - SERUM 0.9 mg/dL (0.6-1.3); GLUCOSE 237 mg/dL (74-106); POTASSIUM - SERUM 3.9 mmol/L (3.5-5.1); PROTEIN - SERUM 7.4 g/dL (6.4-8.2); SODIUM 135 mmol/L (136-145); UREA NITROGEN 16 mg/dL (7-18); eGFR NON AFRICAN AMERICAN > 90 mL/min (90-120)
[2018-04-24 19:37] LABS: CKMB 0.5 U/L (0.0-3.6); CREATINE KINASE 50 UL (21-232); TROPONIN-I < 0.017 ng/mL (0.000-0.060)
--- NOTE | 2018-04-24 19:41 | NUR ---
RESUMED CARE OF PT, LYING IN BED RESPIRATIONS EVEN AND UNLABORED ON ROOM AIR RESPIRATIONS EVEN AND UNLABORED ON ROOM AIR. PLAN OF CARE DISCUSSED, CALL LIGHT IN REACH. SEE NURSE ASSESSMENT.
[2018-04-24 20:23] VITALS: BP 129/84
[2018-04-24 22:49] VITALS: Ht 172.7 cm; Wt 111.9 kg
[2018-04-25 01:05] VITALS: BP 137/93
[2018-04-25 01:41] LABS: CKMB 0.6 U/L (0.0-3.6); CREATINE KINASE 55 UL (21-232); TROPONIN-I < 0.017 ng/mL (0.000-0.060)
[2018-04-25 05:36] VITALS: BP 160/90
--- NOTE | 2018-04-25 07:30 | NUR ---
ASSESSMENT DONE. DENIES ANY NEEDS. ALERT AND ORIENTED.LEFT FA IV. UP AB FELISHA. WILLL MONITOR
[2018-04-25 08:06] VITALS: BP 144/97
[2018-04-25 08:50] LABS: CREATINE KINASE 51 UL (21-232)
[2018-04-25 08:53] LABS: TROPONIN-I < 0.017 ng/mL (0.000-0.060)
[2018-04-25 09:13] LABS: CKMB 0.6 U/L (0.0-3.6)
--- NOTE | 2018-04-25 10:29 | NUR ---
RECIEVED UP IN BED WITH HOB ELEVATED. ALERT AND ORIENTED X4. IV TO LEFT FA WITH NS AT 75CC/HR. TELEMETRY IN PLACE. CAP REFILLS GREATER THAN 3. NO EDEMA OBSERVED. RESP EVEN AND UNLABORED. DENIES ANY NEEDS AT THIS TIME.
[2018-04-25 11:45] VITALS: BP 141/83
[2018-04-25 12:15] LABS: APPEARANCE CLEAR (CLEAR); COLOR YELLOW (YELLOW); GLUCOSE 1000 mg/dL (NEGATIVE); KETONE NEGATIVE (NEGATIVE); NITRITE NEGATIVE (NEGATIVE); PROTEIN NEGATIVE (NEGATIVE); SPECIFIC GRAVITY 1.015 (1.005-1.020)
[2018-04-25 12:16] LABS: BILIRUBIN NEGATIVE (NEGATIVE); UROBILINOGEN NORMAL (NORMAL)
--- NOTE | 2018-04-25 15:51 | NUR ---
I have reviewed this patient and I concur with the Shift Assessment completed by the Licensed Practical Nurse today this shift.
[2018-04-25 15:56] VITALS: BP 136/83
[2018-04-25 20:00] VITALS: BP 147/88
[2018-04-26] VITALS (7 sets, daily range): BP systolic 114–176; BP diastolic 74–100
[2018-04-26 05:32] LABS: BASOPHILS 0.9 % (0-2); EOSINOPHILS 8.5 % (0-7); HEMATOCRIT 45.7 % (42.0-54.0); HEMOGLOBIN 15.9 g/dL (13.5-17.5); IMMATURE GRANULOCYTES 0.2 % (0-5); MCH 30.2 pg (26.0-34.0); MCHC 34.8 g/dL (31.0-37.0); MCV 86.9 fL (80.0-100.0); MEAN PLATELET VOLUME 10.8 fL (7.4-10.4); MONOCYTES 7.7 % (2-11); NEUTROPHILS 47.7 % (40-80); PLATELET COUNT 202 10x3/uL (130-400); RBC 5.26 10x6/uL (4.20-6.10); RDW 12.3 % (11.5-14.5)
[2018-04-26 05:40] LABS: CALCIUM 7.7 mg/dL (8.5-10.1); CHLORIDE - SERUM 102 mmol/L (98-107); CREATININE - SERUM 0.8 mg/dL (0.6-1.3); POTASSIUM - SERUM 4.1 mmol/L (3.5-5.1); SODIUM 134 mmol/L (136-145); UREA NITROGEN 13 mg/dL (7-18); eGFR NON AFRICAN AMERICAN > 90 mL/min (90-120)
[2018-04-26 05:49] LABS: CALC OSMOLALITY 281 mosm/kg (275-300); CARBON DIOXIDE 17.4 mmol/L (21.0-32.0); GLUCOSE 358 mg/dL (74-106)
--- NOTE | 2018-04-26 13:50 | NUR ---
FLU SWAB COLLECTED AND TAKEN TO LAB.
--- NOTE | 2018-04-26 19:58 | NUR ---
RECIEVED UP IN BED WITH EYES OPEN AND TV ON. REPORTEED CBG ABOVE 400 TODAY. EDUCATED PT ON RISK OF HIGH BLOOD SURGFAR AND EFFECTS ON BODY. ALSO SPOKE WITH PT REGARDING DIET. VERBALIZED UNDERSTANDING AND THANKED THIS NURSE FOR THE INFORMATION. ALERT AND ORIENTED X4. IV VINNY AND HAS HARDEN AREA. D/C'D AND PT REQUESTED TO NOT HAVE ANOTHER IV D/T DR. HARDEN TELLING HIM HE COULD GO HOME TOMORROW.
[2018-04-27 04:30] VITALS: BP 127/71
[2018-04-27 06:01] LABS: BASOPHILS 0.7 % (0-2); EOSINOPHILS 8.4 % (0-7); HEMATOCRIT 44.8 % (42.0-54.0); HEMOGLOBIN 15.7 g/dL (13.5-17.5); IMMATURE GRANULOCYTES 0.5 % (0-5); LYMPHOCYTES 35.1 % (15-50); MCV 85.7 fL (80.0-100.0); MEAN PLATELET VOLUME 11.2 fL (7.4-10.4); MONOCYTES 8.3 % (2-11); PLATELET COUNT 215 10x3/uL (130-400); RBC 5.23 10x6/uL (4.20-6.10); RDW 12.4 % (11.5-14.5); WBC 9.4 10x3/uL (4.8-10.8)
[2018-04-27 06:23] LABS: CHLORIDE - SERUM 102 mmol/L (98-107); CREATININE - SERUM 0.7 mg/dL (0.6-1.3); POTASSIUM - SERUM 3.7 mmol/L (3.5-5.1); SODIUM 135 mmol/L (136-145); UREA NITROGEN 13 mg/dL (7-18); eGFR NON AFRICAN AMERICAN > 90 mL/min (90-120)
[2018-04-27 06:25] LABS: CALC OSMOLALITY 275 mosm/kg (275-300); CARBON DIOXIDE 27.1 mmol/L (21.0-32.0); GLUCOSE 214 mg/dL (74-106)
[2018-04-27 08:30] VITALS: BP 139/61
[2018-04-27] MEDS ORDERED: LEVAQUIN750 MG PO (10:06)
--- NOTE | 2018-04-27 10:29 | NUR ---
IV AND TELEMETRY DCD. DC PLANS GIVEN. UNDERSTANDING VOICED. ESCORTED TO CAR BY W/C.
--- NOTE | 2018-04-28 09:45 | MORECARE ---
CASE MANAGEMENT DISCHARGE SUMMARY PATIENT: NOE WASHBURN UNIT: [id number] ADM DATE: 04/24/18 AGE: 48 : [birth year] SEX: M ROOM/BED: D.2118 AUTHOR: KWAN LOPEZ PHYSICIAN: REFERRING PHYSICIAN: LILA HARDEN MD DATE OF SERVICE: 04/28/18 Discharge Plan Patient Name: NOE WASHBURN [facility] [facility] 1970 Planned Disposition: Home Anticipated Discharge Date: 04/27/18 Discharge Date: 04/27/2018 Expected LOS: 3 Initial Reviewer: [email or web address] Initial Review Date: 04/28/2018 Generated: 04/28/18 10:45 am Patient Name: NOE WASHBURN Page [id number] at 0945 All edits/amendments must be made on the electronic document DICTATION DATE: 04/28/18944 ELECTRONIC VIDEO GAMES SERVICER: NENO 04/28/18944 RPT#: [id number] DC DATE:04/27/18 STATUS: DIS IN [facility] [address] [place] [address] END OF REPORT
--- NOTE | 2018-04-28 17:21 | HP ---
PATIENT: NOE WASHBURN MEDICAL RECORD: [id number] ACCOUNT: [id number] LOCATION:[address] : [birth year] ADMISSION DATE: 04/24/18 PCP: MARK HICKEY DO HISTORY AND PHYSICAL EXAMINATION DATE OF ADMISSION: 04/24/2018 HISTORY: Mr. Washburn is a 48-year-old white male that presents to the Emergency Room complaining of feeling "terrible" for the last 4 days. He has been short of breath, felt hot but actually has not observed any fever. He is diaphoretic here in the office. His blood pressure is fluctuating quite a bit. His EKG shows sinus tachycardia in the low 100s. His sats are okay, but he was placed on oxygen in the office due to shortness of breath and he did improve there. He has daily chest pain with exertion. He has a known history of coronary artery disease and has had a previous myocardial infarction in August or September of last year. He has had some loss of LV function. He sees Dr. Omalley. His CBC looks okay. His flu test is negative here in the office. Chest x-ray reveals no infiltrates. Heart size is normal. He is admitted at this time for further evaluation. Cannot rule out cardiac source or possibly even a PE at this point. PAST MEDICAL HISTORY: Significant for known coronary artery disease with previous OK; obesity, newly diagnosed; uncontrolled type 2 diabetes; hyperlipidemia; hypertension; and rheumatoid arthritis. PAST SURGICAL HISTORY: Includes oral surgery, PTCAs, and hand surgery in 2005. ALLERGIES: At this time, none. HOME MEDICATIONS: Include metoprolol 50 mg b.i.d., clopidogrel 75 mg a day, lisinopril 20 mg a day, Lexapro 10 mg a day, simvastatin 40 mg a day, metformin 1000 mg b.i.d., Jardiance 10 mg a day, and baby aspirin a day. FAMILY HISTORY: Significant for dad with renal cell carcinoma. Brother was recently diagnosed with coronary artery disease and type 2 diabetes. 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 REVIEW OF SYSTEMS: He has felt hot, but no actual fever. He has had diaphoresis. He has daily chest pain, particularly with exertion. He has some shortness of breath. He has occasional nausea. He denies any edema. PHYSICAL EXAMINATION: GENERAL: He is in no distress at this point, but obviously does not feel well. HEENT: Sclerae nonicteric. Mucous membranes are moist. NECK: Soft. HEART: Regular with mild tachycardia. LUNGS: Relatively clear. ABDOMEN: Soft. No edema. IMPRESSION: 1. Dyspnea. 2. Sinus tachycardia. 3. Known coronary artery disease. 4. Chest pain. 5. Shortness of breath. HISTORY AND PHYSICAL [id number] NOE WASHBURN 6. Type 2 diabetes. 7. Depression. 8. Hypertension. 9. Hyperlipidemia. PLAN: Admit. I discussed with Dr. Ravi. Cycle his enzymes. Consult cardiology. Check a D-dimer. Check a CTA. Hold his metformin. Placed on a sliding scale. Check blood cultures. See orders for rest of plan. TRANSINT:[id number] Voice Confirmation ID: [id number] DOCUMENT ID: [id number] MARK HICKEY DO at 1721 CC: [id number] DICTATION DATE: 04/24/18 183 FIELD SERVICE ANALYST: 04/24/18 1854 DIS IN 04/27/18 [facility] [address] [place] [address]
== END 2018-04-27 11:01 | disposition home or self-care (01) ==
LOC: D.M2 18:14 → OBSVTIME 18:14 → D.M2 04-27 11:01
PROVIDERS: ADMIT Internal Medicine Nephrology; ATTEND Internal Medicine Nephrology
DX: R06.00 Dyspnea, unspecified (principal); I25.10 Atherosclerotic heart disease of native coronary artery without angina pectoris; I10 Essential (primary) hypertension; E11.9 Type 2 diabetes mellitus without complications; E78.5 Hyperlipidemia, unspecified; F32.9 Major depressive disorder, single episode, unspecified

== ENCOUNTER 2018-08-31 13:04 | Observation (INO) | payer BC ==
[~2018-08-31] VITALS: Ht 172.7 cm; Wt 104.3 kg
--- NOTE | ~2018-08-31 | HEMODYNAMI ---
PATIENT:NOE WASHBURN MEDICAL RECORD: [id number] : 68 [facility] [id number] ADMISSION DATE: 08/31/18 Generatedon:09/01/201810:04 Patient name: NOE WASHBURN Patient #: [id number] SSN: : Date of study: 09/01/2018 Page: Of Hemodynamic Procedure Report Patient Data Patient Demographics Procedure consent was obtained First Name: NOE Gender: Male Last Name: WU : 1970 [facility] Initial: P Age: 48 year(s) Patient #: [id number] Race: Unknown Additional ID: [id number] Contact details Address: [address] [address] State: [place] City: [place] Zip code: [address] Past Medical History Allergies: No known allergies Admission Admission Data Admission Date: 08/31/2018 Admission Time: 16:21 Admit Source: Other Insurance Payor: Private Room #: D.2117 health insurance Height (in.): 68.11 BSA: 2.18 (m2) Height (cm.): 173 BMI: 35.08 (kg/m2) Weight (lbs.): 231.49 Weight (kg.): 105 Lab Results Lab Result Date: 09/01/2018 Lab Result Time: 0:00 Biochemistry Name Units Result Min Max BUN mg/dl 15 --(--*-)-- 7 18 Creatinine mg/dl 0.9 --(-*--)-- 0.6 1.3 CBC Name Units Result Min Max Hemoglobin g/dl 16.2 --(--*-)-- 13.5 17.5 Procedure Procedure Types Cath Procedure Diagnostic Procedure C [facility] w/Coronaries Procedure Description Procedure Date Procedure Date: 09/01/2018 Procedure Start Time: 9:39 Procedure End Time: 10:01 Procedure Staff Name Function Chandler Vogel MD Performing Physician Anita Alvarez RT Monitor Sunshine Tai RT Scrub Lori Montes RN Nurse Procedure Data Cath Procedure Fluoroscopy Diagnostic fluoroscopy Total fluoroscopy Time: 7.9 time: 7.9 min min Diagnostic fluoroscopy Total fluoroscopy dose: dose: 1400 mGy 1400 mGy Contrast Material Contrast Material Type Amount (ml) Isovue 300 89 Entry Location Entry Primary Successful Side Size Upsize Upsize Entry Closure Succes sful Closure Location (Fr) 1 (Fr) 2 (Fr) Remarks Device Remarks Femoral Right 5 Fr 6 Fr Exoseal artery Short Estimated blood loss: 5 ml Diagnostic catheters Device Type Used For End Catheter Placement MULTIPACK JL 4.0 5Fr Left Coronary catheter Angiography MULTIPACK 3DRC 5Fr Right Coronary catheter Angiography MULTIPACK Pigtail 5 Fr LV Angiography catheter Procedure Complications No complications Procedure Medications Medication Administration Route Dosage 0.9% NaCl I.V. 100 ml/hr Oxygen etCO2 Nasal cannula 2 l/min Lidocaine 2% added to field 20 Heparin Flush Bag added to field 2 bags (1000units/500ml NS) Plavix P.O. 75 mg Versed I.V. 2 mg Fentanyl I.V. 50 mcg Versed I.V. 2 mg Fentanyl I.V. 50 mcg Heparin Bolus I.V. 5000 units Hemodynamics Rest BSA: 2.18 (m2) HGB: 16.2 (g/dl) O2 Consumption: Estimated: 283.21 (ml/min) O2 Co nsumption indexed: Estimated:129.91 (ml/min/m) Heart Rate: 97 (bpm) Pressure Samples Time Site Value (mmHg) Purpose Heart Use Rate(bpm) 9:44 LV 94/-8,4 Snapshot 95 9:44 AO 108/74(90) Pullback 94 Gradients Valve Time Site Site 2 Mean SEP/DFP Peak To Heart Use 1 (mmHg) (sec/min) Peak Rate (mmHg) (bpm) Aortic 9:44 LV AO 21 53 94 108/74(90) Calculations Valve P-P Mean Valve Index Valve Source Name Gradient Area Flow (cm2) Aortic 21 21 Snapshots Pre Cath Intra NCS Post Cath Vital Signs Time Heart Resp SPO2 etCO2 NIBP (mmHg) Rhythm Pain Sedation Rate (ipm) (%) (mmHg) Status Level (bpm) 9:06:41 94 19 96 32.9 154/98(136) NSR 0 (11) 10(A) , No pain 9:10:53 95 17 97 34.4 150/95(126) NSR 0 (11) 10(A) , No pain 9:15:05 96 16 97 38.2 142/85(107) NSR 0 (11) 10(A) , No pain 9:19:15 96 14 97 38.9 138/89(112) NSR 0 (11) 10(A) , No pain 9:23:21 94 14 97 39 135/90(114) NSR 0 (11) 10(A) , No pain 9:27:25 93 13 96 41.2 142/96(116) NSR 0 (11) 10(A) , No pain 9:31:32 96 13 97 42.7 142/96(117) NSR 0 (11) 10(A) , No pain 9:35:40 97 14 98 40.4 132/91(113) NSR 0 (11) 10(A) , No pain 9:39:44 94 16 96 33.7 143/94(124) NSR 0 (11) 10(A) , No pain 9:43:54 95 15 96 41.9 149/85(122) NSR 0 (11) 9(A) , No pain 9:48:02 95 14 96 43.4 142/85(113) NSR 0 (11) 9(A) , No pain 9:52:11 96 15 96 27 137/85(114) NSR 0 (11) 9(A) , No pain 9:56:19 97 17 98 41.2 134/83(103) NSR 0 (11) 9(A) , No pain 10:00:25 93 15 98 39.7 138/85(103) NSR 0 (11) 10(A) , No pain Medications Time Medication Route Dose Verified Delivered Reason Notes Effectiveness by by 9:11:24 0.9% NaCl I.V. 100 Chandler Lori used for ml/hr Lela Simon procedure MD HENNING 9:11:30 Oxygen etCO2 2 Chandler Lori used for Nasal l/min Lela Simon procedure cannula MD HENNING 9:11:35 Lidocaine 2% added 20ml Chandler Arteaga for local to vial [facility] anesthetic field MD CHRISTOPHER 9:11:38 Heparin Flush added 2 Chandler Chandler [facility] ([facility]/500[facility] field MD CHRISTOPHER NS) 9:11:47 Plavix P.O. 75 mg Chandler Lori for [facility] Glenn Montes antiplatelet RN therapy 9:36:25 Versed I.V. 2 mg Chandler Lori for sedation [facility] Glenn Montes MD RN 9:36:29 Fentanyl I.V. 50 Chandler Lori for sedation mcg [facility] Glenn Montes MD RN 9:40:31 Versed I.V. 2 mg Chandler Lori for sedation [facility] Glenn Montes MD, RN 9:40:34 Fentanyl I.V. 50 Chandler Lori for sedation mcg [facility] Glenn Montes MD, RN 9:46:49 Heparin Bolus I.V. 5000 Chandler Lori for verifi ed units [facility] Glenn Montes anticoagulation with Dr. MD MILADY Omalley Procedure Log Time Note 8:46:32 Anita Alvarez RT(R) sent for patient. Start room use. 8:46:35 Time tracking: Regular hours (M-F 7:00 - 5:00) 8:46:40 Plan of Care:Hemodynamics will remain stable., Cardiac rhythm will remain stable., Comfort level will be maintained., Respiratory function will remain adequate., Patient/ family verbilizes understanding of procedure., Procedure tolerated without complication., Recovers from procedure without complications.. 8:48:10 Admit Source: Other 8:48:19 Patient Weight : 231.49 lbs 8:48:26 Patient Height : 68.11 inches 8:48:41 Insurance Payor : Private health insurance 8:49:07 Lab Result : BUN 15 mg/dl 8:49:07 Lab Result : Creatinine 0.9 mg/dl 8:49:07 Lab Result : Hemoglobin 16.2 g/dl 9:05:35 Vital chart was started 9:09:47 Patient received from Med II to CCL 2 Alert and oriented. Tansferred to table in Supine position. 9:09:49 Warm blankets applied, and gilma hugger turned on for patient comfort. 9:09:49 Correct patient and procedure confirmed by team. 9:09:50 ECG and BP/O2 sat monitors applied to patient. 9:09:52 Signed procedure consent form obtained from patient. 9:09:53 Baseline sample Acquired. 9:10:01 Rhythm: sinus tachycardia 9:10:03 Full Disclosure recording started 9:10:07 H&P Date Dictated: 09/01/2018 Within 30 days and on chart., H&P Addendum completed by physician on day of procedure. (MUST COMPLETE FOR ALL OUTPATIENTS). 9:10:09 Pre-procedure instructions explained to patient. 9:10:10 Pre-op teaching completed and patient verbalized understanding. 9:10:12 Family unavailable. 9:10:13 Patient NPO since Midnight. 9:10:26 Is the patient allergic to Iodine/contrast media? No. 9:10:27 Was the patient premedicated? No 9:10:29 Is patient on blood thinner?Yes 9:10:32 ACC The patient was administered the following blood thiners within the last 24 hours: ACCPlavix 9:10:36 Patient diabetic? Yes. 9:10:37 If diabetic: On Metformin? Yes 9:10:41 If on Metformin: Last Dose? 08/31/2018 9:10:47 Previous problem with sedation/anesthesia? No ? 9:10:48 Snore? Yes 9:10:50 Sleep apnea? No 9:10:50 Deviated septum? No 9:10:51 Opens mouth fully? Yes 9:10:52 Sticks out tongue? Yes 9:10:54 Airway obstruction? No ? 9:10:57 Dentures? No ? 9:11:01 Pre procedure: right dorsailis pedis pulse 2+ Normal; easily identifiable; not easily obliterated 9:11:03 Pre procedure: left dorsailis pedis pulse 2+ Normal; easily identifiable; not easily obliterated 9:11:05 Patient pain scale 0/10 ?. 9:11:12 IV patent on arrival in left forearm with 0.9% NaCl at [facility]. 9:11:14 Lab results completed and on chart. 9:11:20 Right groin area was prepped with chlora-prep and draped in sterile fashion 9:11:20 Alarms reviewed by R. N. 9:11:21 Sharps counted by scrub and verified by R.N. 9:11:24 0.9% NaCl 100 ml/hr I.V. was administered by Lori Montes RN; used for procedure; 9:11:30 Oxygen 2 l/min etCO2 Nasal cannula was administered by Lori Montes RN; used for procedure; 9:11:35 Lidocaine 2% 20ml vial added to field was administered by Chandler Vogel MD; for local anesthetic; 9:11:38 Heparin Flush Bag (1000units/500ml NS) 2 bags added to field was administered by Chandler Vogel MD; used for procedure; 9:11:47 Plavix 75 mg P.O. was administered by Lori Montes RN; for antiplatelet therapy; 9:20:53 Maximum allowable contrast does (3.7 X eGFR X 0.75)249 ml. 9:21:02 1) 90+ Normal kidney functon but urine findings or structural abnormalities or genetic trait point to kidney disease. 9:25:25 Zero performed for pressure channel P1 9:35:39 Physician arrived 9:35:40 --------ALL STOP TIME OUT------ 9:35:40 Final Timeout: patient, procedure, and site verified with staff and physician. All members of the team are in agreement. 9:35:42 Right groin site verified by team. 9:35:46 Fire Safety Assessment: A--An alcohol-based skin anteseptic being used preoperatively., C--Open oxygen or nitrous oxide is being used., D--An ESU, laser, or fiber-optic light is being used. 9:35:49 Physical assessment completed. ASA score P 2 - A patient with mild systemic disease as per Chandler Vogel MD. 9:35:55 Sedation plan: IV Moderate Sedation Medication:Versed, Fentanyl 9:36:05 Use device set Femoral Dx 9:36:06 ACIST Syringe (25208) opened to sterile field. 9:36:07 Bag Decanter () opened to sterile field. 9:36:07 Medline Cath Pack ([id number]) opened to sterile field. 9:36:09 ACIST Hand Control (77355) opened to sterile field. 9:36:12 ACIST Manifold (32670) opened to sterile field. 9:36:12 DIAGNOSTIC Multipack 5Fr catheter set (OS3340) opened to sterile field. 9:36:13 Tegaderm 4 x 4 (1626W) opened to sterile field. 9:36:14 EMERALD Guide Wire (554-355) opened to sterile field. 9:36:15 SHEATH 5FR Effort (XAM027) opened to sterile field. 9:36:25 Versed 2 mg I.V. was administered by Lori Montes RN; for sedation; 9:36:29 Fentanyl 50 mcg I.V. was administered by Lori Montes RN; for sedation; 9:39:34 Procedure started. 9:39:38 Local anesthetic to right femoral artery with Lidocaine 2% by Chandler Vogel MD.INITIAL ACCESS ONLY 9:40:11 A 5 Fr sheath was inserted into the Right Femoral artery 9:40:28 A MULTIPACK JL 4.0 5Fr catheter was advanced over the wire and used for Left Coronary Angiography. 9:40:31 Versed 2 mg I.V. was administered by Lori Montes RN; for sedation; 9:40:34 Fentanyl 50 mcg I.V. was administered by Lori Montes RN; for sedation; 9:41:19 LCA angiography performed. 9:41:22 Injector settings: Ml/sec: 3, Volume: 6, 9:42:26 Catheter removed. 9:42:31 A MULTIPACK 3DRC 5Fr catheter was advanced over the wire and used for Right Coronary Angiography. 9:42:55 RCA angiography performed. 9:42:58 Injector settings: Ml/sec: 3, Volume: 6, 9:43:00 Catheter removed. 9:43:08 A MULTIPACK Pigtail 5 Fr catheter was advanced over the wire and used for LV Angiography. 9:44:06 LV hemodynamics recorded. 9:44:08 LV gram done using SOUZA 9:44:10 Injector settings: Ml/sec: 5, Volume: 15, 9:44:16 EF : 55 % 9:44:27 Catheter removed. 9:44:28 Proceeding to intervention. 9:44:53 SHEATH 6FR Effort (ENU861) opened to sterile field. 9:44:54 INFLATOR Merit BasixCompak (DD2079) opened to sterile field. 9:46:49 Heparin Bolus 5000 units I.V. was administered by Lori Montes RN; for anticoagulation; verified with Dr. Omalley 9:46:58 GUIDE 6FR JL 4.0 catheter (YD2SD47) opened to sterile field. 9:47:09 Sheath upsized to a 6 Fr Short. 9:47:16 6 Fr jl 4 guide catheter was inserted over the wire 9:47:21 whisper wire advanced. 9:52:05 Wire removed. 9:52:12 Guide catheter removed. 9:52:50 GUIDE 6FR EBU 3.5 catheter (AJ6MID43) opened to sterile field. 9:53:02 6 Fr ebu 3.5 guide catheter was inserted over the wire 9:53:17 whisper wire advanced. 9:53:42 WHISPER 300cm guide wire ([id number]) opened to sterile field. 9:55:51 BMW 300cm [place] 2 J wire ([id number]) opened to sterile field. 9:59:32 The EMERGE OTW 2.5 x 15 balloon ([id number]) was advanced and then removed because of failure to cross lesion 9:59:42 Wire removed. 9:59:42 Guide catheter removed. 9:59:48 EXOSEAL 6Fr (EX600) opened to sterile field. 9:59:56 Sheath removed intact; hemostasis achieved with Exoseal to the Right Femoral artery. 10:00:10 Procedure ended.(Physican Out) 10:00:36 Fluoroscopy time 07.90 minutes. 10:00:40 Flurop Dose total: 1400 10:00:40 Fluoroscopy dose: 1400 mGy 10:00:50 Contrast amount:Isovue 300 89ml. 10:00:51 Sharps counted by scrub and verified by R.N. 10:00:52 Insertion/operative site no bleeding no hematoma. 10:00:55 Post-op/insertion site Right Femoral artery dressed using a 4 x 4 and Tegaderm. 10:00:57 Post procedure rhythm: unchanged. 10:01:00 Estimated blood loss: 5 ml 10:01:01 Post procedure instruction explained to patient.Patient verbalizes understanding. 10:01:02 Patient needs reinforcement of post procedure teaching. 10:01:15 Procedure and supply charges have been captured, reviewed, submitted and are correct. 10:01:19 Procedure Complication : No complications 10:01:22 Vital chart was stopped 10:01:22 See physician's report for complete and final results. 10:01:27 Report given to [facility]. 10:01:32 Patient transfered to [facility] with Stretcher. 10:01:36 Procedure ended. 10:01:36 Full Disclosure recording stopped 10:01:52 End room use (Document Last) Intervention Summary Intervention Notes Time ActionType Lesion and Equipment Action# Pressure Duration Attributes Used 9:59:32 Discard EMERGE OTW Balloon 2.5 x 15 balloon ([id number]) Device Usage Item Name Manufacture Quantity Catalog Number Hospital Part Current Min imal Lot# / Charge Number Stock Stock Serial# Code ACIST Acist 1 61532 733770 738627 531675 20 Syringe Medical (36291) Systems Inc Bag Decanter Microtek 1 2001S 936069 06037 329974 5 () Medical Inc. Medline Cath Medline 1 [id number] 604504 07020 077728 5 Pack ([id number]) ACIST Hand Acist 1 06472 274376 994139 383339 5 Control Medical (70796) Systems Inc ACIST Acist 1 98464 629145 922410 799760 5 Manifold Medical (05911) Systems Inc DIAGNOSTIC Cardinal 1 ZL7150 223486 55082 988729 30 Multipack Health 5Fr catheter set (VZ9977) Tegaderm 4 x 3M 1 1626W 980449 932321 845908 5 4 (1626W) EMERALD Cardinal 1 502-455 989076 283917 119500 5 Guide Wire Health (502-455) SHEATH 5FR Terumo 1 TFO861 512169 387333 555213 5 Effort (IPC036) MULTIPACK JL Cardinal 1 086541 5 4.0 5Fr Health catheter MULTIPACK Cardinal 1 853113 5 3DRC 5Fr Health catheter MULTIPACK Cardinal 1 754149 5 Pigtail 5 Fr Health catheter SHEATH 6FR Terumo 1 XKJ879 228158 632580 130678 40 Effort (ZLU801) INFLATOR [facility] 1 WL8717 809521 881473 655320 15 [facility] Medical BasixCompak (ZX4474) GUIDE 6FR JL Medtronic 1 MV8KR35 906853 57641 741514 1 4.0 catheter (NS2NN39) GUIDE 6FR Medtronic 1 PJ4NJI75 258869 26053 281635 3 EBU 3.5 catheter (BP5NEM44) WHISPER [place] 1 [id number] 148881 812720 013651 5 300cm guide Vascular wire (2858724AT) BMW 300cm Hawley 1 6680192C 004395 605771 865592 5 [place]igee 2 Vascular J wire (5164562E) EMERGE OTW [place] 1 [id number] 628749 690714 487448 5 [id number] 2.5 x 15 Scientific balloon ([id number]) EXOSEAL 6Fr Cardinal 1 EX600 699029 525059 774234 10 (EX600) Health Signature Audit [place] Stage Time Signature Unsigned Intra-Procedure 09/01/2018 Anita Alvarez 10:04:25 AM RT(R) Signatures Monitor : Anita Alvarez RT Signature : Date : Time : [address] [place] [address]
[~2018-08-31 13:04] MED LIST changes: +LEVAQUIN750 MG PO
[2018-08-31 13:25] LABS: BASOPHILS 0.4 % (0-2); HEMATOCRIT 51.6 % (42.0-54.0); HEMOGLOBIN 18.5 g/dL (13.5-17.5); IMMATURE GRANULOCYTES 0.3 % (0-5); LYMPHOCYTES 20.3 % (15-50); MCH 30.4 pg (26.0-34.0); MCHC 35.9 g/dL (31.0-37.0); MCV 84.9 fL (80.0-100.0); MEAN PLATELET VOLUME 10.9 fL (7.4-10.4); MONOCYTES 7.2 % (2-11); NEUTROPHILS 63.8 % (40-80); PLATELET COUNT 233 10x3/uL (130-400); RBC 6.08 10x6/uL (4.20-6.10); RDW 12.8 % (11.5-14.5); WBC 12.8 10x3/uL (4.8-10.8)
[2018-08-31 13:33] LABS: APTT 24.5 SECONDS (22.8-39.4); INR 0.93 (0.85-1.17); PROTIME 11.9 SECONDS (11.6-15.0)
[2018-08-31 13:38] LABS: ALBUMIN 3.7 g/dL (3.4-5.0); ALKALINE PHOSPHATASE 138 U/L (46-116); ALT (SGPT) 33 U/L (10-68); CALC OSMOLALITY 283 mosm/kg (275-300); CALCIUM 9.6 mg/dL (8.5-10.1); CARBON DIOXIDE 27.8 mmol/L (21.0-32.0); CHLORIDE - SERUM 100 mmol/L (98-107); GLUCOSE 312 mg/dL (74-106); POTASSIUM - SERUM 4.5 mmol/L (3.5-5.1); PROTEIN - SERUM 8.2 g/dL (6.4-8.2); SODIUM 136 mmol/L (136-145); UREA NITROGEN 13 mg/dL (7-18); eGFR NON AFRICAN AMERICAN 84 mL/min (90-120)
[2018-08-31 13:49] LABS: CKMB 0.5 U/L (0.0-3.6); CREATINE KINASE 47 UL (21-232); MAGNESIUM - SERUM 2.1 mg/dL (1.8-2.4); TROPONIN-I < 0.017 ng/mL (0.000-0.060)
[2018-08-31 14:12] VITALS: BP 137/97
--- NOTE | 2018-08-31 14:12 | NUR ---
PT IS NOW COMPLAINING OF HEADACHE.
--- NOTE | 2018-08-31 14:21 | NUR ---
PT REPORT CHEST PAIN 3/10 AT THIS TIME. NITRO X 1 GIVEN.
--- NOTE | 2018-08-31 14:28 | NUR ---
CHEST PAIN CONTINUES TO BE 3/10. 2ND NITRO GIVEN AT THIS TIME.
--- NOTE | 2018-08-31 16:46 | NUR ---
TRANSFER FROM ER BY W/C. SHANEINTED TO ROOM. CALL LIGHT IN REACH. WILL CONT. PLAN OF CARE.
[2018-08-31] MEDS ORDERED: JARDIANCE10 MG PO (16:59)
[2018-08-31] MEDS ORDERED: NITROQUICK0.4 MG SL (17:00)
[2018-08-31] MEDS ORDERED: LISINOPRIL2.5 MG PO (17:01)
[2018-08-31 17:03] VITALS: BP 132/74; BMI 35.0
[2018-08-31 19:47] LABS: CKMB 0.4 U/L (0.0-3.6); CREATINE KINASE 40 UL (21-232); TROPONIN-I < 0.017 ng/mL (0.000-0.060)
--- NOTE | 2018-08-31 22:52 | NUR ---
INITIAL ROUNDS COMPLETED AT 1915 HRS. PT REQUESTING PAIN MEDS. INFORMED NEXT PAIN MEDS AT 1999 HRS. ASSESSMENT COMPLETED AT [address] PER CM HR 100. ALERT AND ORIENTED TO PERSON, PLACE AND TIME. ESQUIVEL. LUNGS CTA. IV TO LFA SL. INFORMED NPO AFTER MIDNIGHT. PT STATED UNDERSTANDING. MORPHINE 4MG SIVP GIVEN AT 2007 HRS FOR C/O CP 07/04. Nabeel LING APN NOTIFIED AT 2039 HRS REGARDING PT'S LACTIC ACID LEVEL. INFORMED IT WENT FROM 2.7 TO 3.7. NO NEW ORDERS EXCEPT WATCH HIM. PM FSBS 246. 4 UNITS REG INSULIN GIVEN SUB-Q TO UPPER R ARM. 0 EKG DONE. PT CURRENTLY RESTING WITH EYES CLOSED. RESP EVEN AND REGULAR. SR UP X2, CALL LIGHT WITHIN REACH.
[2018-09-01] VITALS: BP 122/77
--- NOTE | 2018-09-01 00:35 | NUR ---
PT RESTING WITH EYES CLOSED. RESP EVEN AND REGULAR. SR UP X2, CALL LIGHT WITHIN REACH.
--- NOTE | 2018-09-01 02:05 | NUR ---
PT RESTING WITH EYES CLOSED. RESP EVEN AND REGULAR. SR UP X2,CALL LIGHT WITHIN REACH.
[2018-09-01 02:59] LABS: BASOPHILS 0.4 % (0-2); EOSINOPHILS 8.3 % (0-7); HEMATOCRIT 46.8 % (42.0-54.0); HEMOGLOBIN 16.2 g/dL (13.5-17.5); IMMATURE GRANULOCYTES 0.3 % (0-5); LYMPHOCYTES 28.8 % (15-50); MCH 29.7 pg (26.0-34.0); MCHC 34.6 g/dL (31.0-37.0); MCV 85.7 fL (80.0-100.0); MEAN PLATELET VOLUME 10.9 fL (7.4-10.4); MONOCYTES 8.5 % (2-11); NEUTROPHILS 53.7 % (40-80); PLATELET COUNT 225 10x3/uL (130-400); RBC 5.46 10x6/uL (4.20-6.10); RDW 12.7 % (11.5-14.5); WBC 11.1 10x3/uL (4.8-10.8)
[2018-09-01 03:10] LABS: ALBUMIN 3.2 g/dL (3.4-5.0); ALKALINE PHOSPHATASE 130 U/L (46-116); ALT (SGPT) 28 U/L (10-68); BILIRUBIN - TOTAL 0.22 mg/dL (0.2-1.3); CALCIUM 8.6 mg/dL (8.5-10.1); CARBON DIOXIDE 28.5 mmol/L (21.0-32.0); CHLORIDE - SERUM 101 mmol/L (98-107); CKMB 0.4 U/L (0.0-3.6); CREATINE KINASE 38 UL (21-232); CREATININE - SERUM 0.9 mg/dL (0.6-1.3); MAGNESIUM - SERUM 1.9 mg/dL (1.8-2.4); PROTEIN - SERUM 6.9 g/dL (6.4-8.2); SODIUM 137 mmol/L (136-145); UREA NITROGEN 15 mg/dL (7-18); eGFR NON AFRICAN AMERICAN > 90 mL/min (90-120)
[2018-09-01 03:13] LABS: CALC OSMOLALITY 279 mosm/kg (275-300); GLUCOSE 180 mg/dL (74-106); POTASSIUM - SERUM 3.7 mmol/L (3.5-5.1); TROPONIN-I < 0.017 ng/mL (0.000-0.060)
[2018-09-01 04:30] VITALS: BP 145/89
--- NOTE | 2018-09-01 04:35 | NUR ---
EKG DONE. NSR PER EKG. PT STATES HAS CP. INFORMED PT WILL BRING MORPHINE WHEN DUE. CALL LIGHT WITHIN REACH.
--- NOTE | 2018-09-01 05:06 | NUR ---
MORPHINE 4MG SIVP GIVEN FOR C/O CP. CALL LIGHT WITHIN REACH.
--- NOTE | 2018-09-01 06:26 | NUR ---
VSS TRHOUGHOUT NIGHT. SR PER CM. PT CONTINUES TO HAVE C/O CP. NPO UNTIL SEEN BY CARDIOLOGY THIS AM. AM FSBS 143. NO COVERAGE NECESSARY. NEEDS MET; WILL CONTINUE TO MONITOR.
[2018-09-01 09:05] LABS: CKMB 0.3 U/L (0.0-3.6); CREATINE KINASE 41 UL (21-232); TROPONIN-I < 0.017 ng/mL (0.000-0.060)
[2018-09-01 09:44] VITALS: BP 134/85
[2018-09-01] MEDS ORDERED: GLUCOPHAGE1000 MG PO (11:30)
[2018-09-01 12:34] VITALS: Ht 172.7 cm; Wt 104.3 kg
[2018-09-01 12:37] VITALS: BP 118/77
--- NOTE | 2018-09-01 18:39 | NUR ---
REVIEWED DISCHARGE INSTRUCTIONS WITH PT STATES UNDERSTANDING COPY GIVEN PT DISCHARGED HOME LEFT UNIT IN STABLE CONDITION VIA W/C WITH ALL PERSONAL BELONGINGS
--- NOTE | 2018-09-02 08:09 | MORECARE ---
CASE MANAGEMENT DISCHARGE SUMMARY PATIENT: NOE WASHBURN UNIT: [id number] ADM DATE: 08/31/18 AGE: 48 : 68 SEX: M ROOM/BED: D.2117 AUTHOR: KWAN LOPEZ PHYSICIAN: REFERRING PHYSICIAN: LILA HARDEN MD DATE OF SERVICE: 09/02/18 Discharge Plan Patient Name: NOE WASHBURN [facility] [facility] 1970 Planned Disposition: Home Anticipated Discharge Date: 09/01/18 Discharge Date: 09/01/2018 Expected LOS: 1 Initial Reviewer: [email or web address] Initial Review Date: 09/02/2018 Generated: 09/02/18 9:08 am Patient Name: NOE WASHBURN Page 80344 at 0809 All edits/amendments must be made on the electronic document DICTATION DATE: 09/02/18 08 WAGON PERSON: NENO 09/02/18 0808 RPT#: [id number] DC DATE:09/01/18 STATUS: DIS IN [facility] [address] [place] [address] END OF REPORT
--- NOTE | 2018-09-02 09:00 | CN ---
PATIENT NAME:NOE WASHBURN MEDICAL RECORD: [id number] : 68 LOCATION:[facility] D.2117 ADMIT DATE: 08/31/18 ACCOUNT: [id number] CONSULTING PHYSICIAN: DANILO CHAKRABORTY MD REFERRING PHYSICIAN: LILA HARDEN MD DATE OF CONSULTATION: 09/01/2018 HISTORY OF PRESENT ILLNESS: A 48-year-old gentleman with history of coronary artery disease, longstanding, most recent intervention in November with no evidence of restenosis, been having intermittent chest tightness and pressure with progression over the last 2-3 weeks. He has had onset of rest symptomology yesterday, tried to spend time to get with weekend, finally presented to the ER. Enzymes currently negative. PAST MEDICAL HISTORY: Includes: 1. History of hypertension. 2. Hyperlipidemia. 3. Diabetes mellitus. SOCIAL HISTORY: Still smokes about a pack a day, nondrinker. He is able to take care of his ADLs. No set exercise program. ALLERGIES: No known allergies. MEDICATIONS: Typically include Plavix 75 every day, lisinopril 20 every day, simvastatin 40 every day, aspirin 81 every day, Jardiance 10 mg p.o. daily, and metformin 500 mg b.i.d. REVIEW OF SYSTEMS: The patient reports easy bruising but reports no swollen glands. The patient reports no fever, no night sweats, no significant weight gain, no significant weight loss. No significant exercise tolerance. The patient reports no dry eyes, no irritation, no vision change. Patient reports no difficulty hearing and no ear pain. Patient reports no frequent nose bleeds or nose and sinus problems. Patient reports on arm pain on exertion. No shortness of breath while lying down. No history of heart murmur. Patient reports no cough, no wheezing or coughing up blood. Patient reports no abdominal pain, no vomiting. Normal appetite. No diarrhea and not vomiting blood. No nausea and no constipation. Patient reports no incontinence. No difficulty urinating. No hematuria. No increased frequency. Patient reports no muscle aches. No weakness, no arthralgias, no back pain. No swelling of the extremities. Patient reports no abnormal mole, no jaundice, no rashes. Reports no loss of consciousness. No weakness and no numbness. No seizures, dizziness, or headaches. The patient reports no depression, no sleep disturbance, feeling safe in a relationship and no alcohol abuse. Patient reports on fatigue. Reports no runny nose or sinus pressure. No itching, no hives, and no frequent sneezing. PHYSICAL EXAMINATION: GENERAL: Pleasant gentleman, in no acute distress. VITAL SIGNS: Blood pressure 145/89, pulse 90 and regular. HEENT: Normocephalic, atraumatic. NECK: No JVD or bruit. HEART: Regular. LUNGS: Good air excursion. ABDOMEN: Soft, nontender. CONSULT REPORT [id number] MOUNT,NOE P EXTREMITIES: Pulses 2+. There is no edema. 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 IMPRESSION: Acute coronary syndrome. We will plan for diagnostic angiography, intervention based on above. TRANSINT:[id number] Voice Confirmation ID: [id number] DOCUMENT ID: [id number] DANILO CHAKRABORTY MD at 0900 CC: [id number] DICTATION DATE: 09/01/18 0842 IRON INSTALLER: 09/01/18 1006 DIS IN 09/01/18 [address] [place] [address]
--- NOTE | 2018-09-02 09:00 | EC ---
PATIENT:NOE WASHBURN DATE OF SERVICE: 08/31/18 SEX: M MEDICAL RECORD: [id number] DATE OF : [birth year] LOCATION:D.M2 D.211 AGE OF PATIENT: 48 ADMISSION DATE: 08/31/18 REFERRING PHYSICIAN: INTERPRETING PHYSICIAN: DANILO CHAKRABORTY MD ECHOCARDIOGRAM REPORT ECHO CHARGES 4 ECHO COMPLETE Date: 09/01/18 CLINICAL DIAGNOSIS: DYSPNEA ECHOCARDIOGRAPHIC MEASUREMENTS (adult normal given) AC root (d.<3.7cm) 2.9 cm LV Septum d (<1.2 cm> 1.0 cm Valve Excursion 1.9 cm LV Septum (systole) 1.1 cm Left Atria (s.<4.0cm> 3.7 cm LVPW d(<1.2cm) 1.2 cm RV (d.<2.3cm) 3.5 cm LVPW (sytole) 1.7 cm LV diastole(<5.6CM) 5.8 cm MV E-F(>70mm/sec) cm LV systole 4.8 cm LVOT Diameter 1.8 cm MV exc.(>10mm) cm Est.ejection fraction (50-75%) % DOPPLER: LVIT cm/sec A 67 cm/sec E 62 cm/sec LA cm/sec RVSP 19.6 mmHg LVOT 125 cm/sec AOP1/2T m/s Asc. Ao 130 cm/sec RVOT 66 cm/sec RA cm/sec PA 150 cm/sec AV Gradient Peak 6.8 mmHg AV Mean 3.5 mmHg AV Area 2.7 cm MV Gradient Peak 3.4 mmHg MV Mean 2.0 mmHg MV Area cm COMMENTS: Corrections Unit Supervisor: Tia [facility] Musical Instrument Mechanic: 3 Dr. Omalley TAPE# PACS Pericardial Effusion N DATE OF SERVICE: Adequate 2-D echo, color-flow and spectral Doppler, and M-mode. No LVH. LV internal dimensions are normal. Wall motion is normal. EF is greater than or equal to 55%. Aortic valve is tricuspid. No evidence of stenosis by Doppler interrogation. Left atrium is normal at 3.7 cm. Mitral valve shows no prolapse. Trace MR. Right-sided chambers are grossly normal. Mild TR. ECHOCARDIOGRAM REPORT [id number] ONE WASHBURN TRANSINT:[id number] Voice Confirmation ID: [id number] DOCUMENT ID: [id number] DANILO CHAKRABORTY MD at 0900 CC: [id number] DICTATION DATE: 09/01/18 1339 INTERIOR DECORATOR: 09/01/18 1420 DIS IN 09/01/18 [id number] [place] [id number]
--- NOTE | 2018-09-02 09:00 | OP ---
PATIENT NAME: NOE WASHBURN MEDICAL RECORD: [id number] :68 LOCATION:D.M2 D.2117 ADMISSION DATE:08/31/18 SURGEON: DANILO CHAKRABORTY MD DATE OF OPERATION: 09/01/2018 PROCEDURE: Left heart catheterization, selective coronary angiography, right femoral artery approach. CATHETERS: A 5-Hungarian sheath, 5/4 left and right César, 5/4 pig. The procedure was well tolerated. The patient was returned to gross, sheath removed. ExoSeal device placed. FINDINGS: Left ventriculography in 30-degree SOUZA view: Normal wall motion, normal systolic function. CORONARY ANATOMY: LEFT MAIN: Left main is widely patent. LAD: LAD and the area of previous stenting is widely patent with no evidence of restenosis. No progression of guidiville disease. CIRCUMFLEX: There is a large OM, previously stented, widely patent. The terminal circumflex itself is a small vessel with a 70% stenosis. RIGHT CORONARY ARTERY: Area of previously stented is widely patent with no evidence of restenosis. IMPRESSION: Unable to intervene on the terminal circumflex secondary to stent placement to the LAD. This has been managed medically. LV function remains normal and major epicardial arteries are well revascularized. TRANSINT:[id number] Voice Confirmation ID: [id number] DOCUMENT ID: [id number] DANILO CHAKRABORTY MD at 0900 CC: [id number] DICTATION DATE: 09/01/18 1059 ICING MIXER: 09/01/18 1116 DIS IN 09/01/18 [id number] [place] [address]
== END 2018-09-01 18:43 | disposition home or self-care (01) ==
LOC: D.ER 13:04 → D.M2 16:21 → OBSVTIME 16:21 → D.M2 16:21
PROVIDERS: Emergency Medicine; Family Medicine; ADMIT Internal Medicine Nephrology; ATTEND Internal Medicine Nephrology
DX: I24.9 Acute ischemic heart disease, unspecified (principal); I25.110 Atherosclerotic heart disease of native coronary artery with unstable angina pectoris; E11.65 Type 2 diabetes mellitus with hyperglycemia; I10 Essential (primary) hypertension; E78.5 Hyperlipidemia, unspecified; K21.9 Gastro-esophageal reflux disease without esophagitis; F32.9 Major depressive disorder, single episode, unspecified; F41.9 Anxiety disorder, unspecified; F17.213 Nicotine dependence, cigarettes, with withdrawal

== ENCOUNTER → 2020-05-24 15:41 | Outpatient (CLI) | payer BC ==
[2018-09-01 12:34] VITALS: BMI 34.9
[~2020-05-24 15:41] MED LIST changes: +GLUCOPHAGE1000 MG PO; +JARDIANCE10 MG PO; +LISINOPRIL2.5 MG PO; +NITROQUICK0.4 MG SL
[2020-05-24 16:56] LABS: ALBUMIN 3.5 g/dL (3.4-5.0); BILIRUBIN - DIRECT 0.14 mg/dL (0.00-0.30); BILIRUBIN - INDIRECT 0.39 mg/dL (0.00-1.00); BILIRUBIN - TOTAL 0.53 mg/dL (0.2-1.3); PROTEIN - SERUM 7.5 g/dL (6.4-8.2)
== END | disposition home or self-care (01) ==
LOC: D.LAB 15:41
PROVIDERS: ATTEND Internal Medicine Gastroenterology
DX: R94.5 Abnormal results of liver function studies (principal)

== ENCOUNTER → 2020-06-09 08:33 | Outpatient (CLI) | payer OTHER ==
[2018-09-01 12:34] VITALS: BMI 34.9
[2020-06-09 09:53] LABS: ALBUMIN 3.6 g/dL (3.4-5.0); BILIRUBIN - DIRECT 0.08 mg/dL (0.00-0.30); BILIRUBIN - INDIRECT 0.22 mg/dL (0.00-1.00); BILIRUBIN - TOTAL 0.3 mg/dL (0.2-1.3); PROTEIN - SERUM 7.6 g/dL (6.4-8.2)
[2020-06-10 10:12] LABS: HEPATITIS C ANTIBODY <0.1 S/CO RAT (0.0-0.9)
== END | disposition home or self-care (01) ==
LOC: D.US 08:30
PROVIDERS: ATTEND Internal Medicine Gastroenterology
DX: R94.5 Abnormal results of liver function studies (principal)

== ENCOUNTER 2020-06-24 05:33 | Day surgery (SDC) | payer OTHER ==
[~2020-06-24] VITALS: Ht 167.6 cm; Wt 100.7 kg
[~2020-06-24 05:33] MED LIST changes: +COREG 3.1253.125 MG PO; +GLIPIZIDE10 MG PO
[2020-06-24 06:02] LABS: BASOPHILS 0.5 % (0-2); EOSINOPHILS 7.3 % (0-7); HEMATOCRIT 50.9 % (42.0-54.0); HEMOGLOBIN 17.4 g/dL (13.5-17.5); IMMATURE GRANULOCYTES 0.3 % (0-5); LYMPHOCYTE ABS# 3.24 10x3/uL (1.32-3.57); LYMPHOCYTES 28.1 % (15-50); MCH 30.3 pg (26.0-34.0); MCHC 34.2 g/dL (31.0-37.0); MCV 88.5 fL (80.0-100.0); MEAN PLATELET VOLUME 11.1 fL (7.4-10.4); MONOCYTES 7.8 % (2-11); NEUTROPHIL ABS# 6.48 10x3/uL (1.78-5.38); PLATELET COUNT 238 10x3/uL (130-400); RBC 5.75 10x6/uL (4.20-6.10); RDW 12.7 % (11.5-14.5); WBC 11.6 10x3/uL (4.8-10.8)
[2020-06-24 06:32] LABS: CALC OSMOLALITY 284 mosm/kg (275-300); CALCIUM 9.4 mg/dL (8.5-10.1); CARBON DIOXIDE 27.2 mmol/L (21.0-32.0); CHLORIDE - SERUM 103 mmol/L (98-107); CREATININE - SERUM 0.7 mg/dL (0.6-1.3); GLUCOSE 184 mg/dL (74-106); SODIUM 140 mmol/L (136-145); UREA NITROGEN 15 mg/dL (7-18); eGFR NON AFRICAN AMERICAN > 90 mL/min (90-120)
[2020-06-24 07:28] VITALS: BP 137/86; Ht 167.6 cm; Wt 100.7 kg
--- NOTE | 2020-06-24 08:47 | NUR ---
NOTED REDNESS BETWEEN LOWER ABDOMEN AND PANNUS AREA.
[2020-06-24] MEDS ORDERED: HYDROCODON-ACE1 EA10 PO (08:53)
--- NOTE | 2020-06-24 09:14 | NUR ---
OPA OUT AT THIS TIME
--- NOTE | 2020-06-24 09:45 | NUR ---
TALKED WITH . Nhi TO GIVE 30MG OF KETORALAC IV NOW. Nhi READ BACK CORRECT.
--- NOTE | 2020-06-24 14:08 | NUR ---
PT REPORTED PAIN 5/10 AFTER NORCO. AMBULATED TO BR AND VOIDED WITHOUT DIFFICULTY. EUPNEIC ON RA.DISCHARGE INSTRUCTIONS GIVEN AND PT VERBALIZED AN UNDERSTANDING. IV D/C'D WITH CANNULA INTACT, PRESSURE HELD AND DRSG PLACED. DISCHARGED IN STABLE CONDITION
--- NOTE | 2020-06-28 13:33 | OP ---
PATIENT NAME: NOE WASHBURN MEDICAL RECORD: [id number] :68 LOCATION:D.OPS ADMISSION DATE: SURGEON: CLEVELAND ADDISON MD DATE OF OPERATION: 06/24/2020 PREOPERATIVE DIAGNOSES: 1. Gallstones. 2. Hypertension. 3. Diabetes mellitus. 4. Hypercholesterolemia. 5. Tobacco dependence syndrome. 6. Coronary artery disease. POSTOPERATIVE DIAGNOSES: 1. Gallstones. 2. Hypertension. 3. Diabetes mellitus. 4. Hypercholesterolemia. 5. Tobacco dependence syndrome. 6. Coronary artery disease. PROCEDURE: Laparoscopic cholecystectomy. SURGEON: Cleveland Addison MD DESCRIPTION OF PROCEDURE: The patient's abdomen was prepped and draped in sterile fashion. A cutdown was made on the superior aspect of the umbilicus, 0 Vicryls were placed in the fascia bilaterally and the fascia was incised with a 15-blade. I then bluntly entered the peritoneal cavity and placed a 12-mm Kayla port. Under direct visualization, a 5-mm trocar was placed in the epigastrium and two more 5-mm trocars were placed in the right subcostal region. The gallbladder was grasped and elevated. The cystic artery and cystic duct were dissected free. The cystic duct was noted to be very small. We attempted to try and set up for a cholangiogram. I clipped the duct proximally and tried to make a small opening in the cystic duct, but it was so small I ended up just cutting right through the duct. For this reason, I just abandoned doing a cholangiogram. The cystic duct was clipped three times distally and the artery was clipped proximally and distally and ligated in standard fashion. The gallbladder was then taken off the liver bed using electrocautery and placed into the right upper quadrant. Any bleeding from the liver bed was then treated with electrocautery. The ports and insufflation were then removed and the gallbladder was taken out through the umbilicus. The umbilical fascia was closed with interrupted 0 Vicryls times 3. The wounds were then irrigated out with normal saline and infused with 10 mL of 0.25% Marcaine with epinephrine. The skin incisions were closed with subcutaneous 5-0 Monocryl and dressed appropriately. COMPLICATIONS: None. CONDITION: Stable. ANESTHESIA: General endotracheal and local. BLOOD LOSS: Minimal. OPERATIVE REPORT [id number] NOE WASHBURN TRANSINT:[id number] Voice Confirmation ID: [id number] DOCUMENT ID: [id number] CLEVELAND ADDISON MD at 1333 CC: MARK HICKEY [id number] DICTATION DATE: 06/24/20 0856 DEVELOPMENT REP: 06/24/20 1224 [facility] 06/24/20 [place] [id number] [place] [id number]
== END 2020-06-24 11:40 | disposition home or self-care (01) ==
LOC: D.OPS 05:33
PROVIDERS: ATTEND Surgery
DX: K80.20 Calculus of gallbladder without cholecystitis without obstruction (principal); I10 Essential (primary) hypertension; E11.9 Type 2 diabetes mellitus without complications; E78.00 Pure hypercholesterolemia, unspecified; F17.200 Nicotine dependence, unspecified, uncomplicated; I25.10 Atherosclerotic heart disease of native coronary artery without angina pectoris